=== PATIENT | female | born 1950 | race Caucasian/White ===

== ENCOUNTER 2018-03-11 21:47 | Inpatient (IN) | payer OTHER ==
[~2018-03-11] VITALS: Ht 165.1 cm; Wt 63.5 kg
[2018-03-11 21:50] VITALS: O2SAT 99
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
[2018-03-11 22:13] LABS: AUTOMATED NEUTROPHIL # 6.2 TH/MM3 (1.8-7.7); BASOPHIL # 0.1 TH/MM3 (0-0.2); BASOPHIL % 0.7 % (0.0-2.0); EOSINOPHIL # 0.1 TH/MM3 (0-0.4); EOSINOPHIL % 1.5 % (0.0-4.0); HEMOGLOBIN 10.8 GM/DL (11.6-15.3); LYMPH % 26.8 % (9.0-44.0); LYMPHOCYTE # 2.6 TH/MM3 (1.0-4.8); MEAN CELL VOLUME 74.2 FL (80.0-100.0); MEAN CORPUSCULAR HEMOGLOBIN 24.3 PG (27.0-34.0); MEAN CORPUSCULAR HGB CONC 32.8 % (32.0-36.0); MEAN PLATELET VOLUME 6.9 FL (7.0-11.0); MONO % 7.7 % (0.0-8.0); MONOCYTE # 0.7 TH/MM3 (0-0.9); NEUT % 63.3 % (16.0-70.0); PLATELET COUNT 482 TH/MM3 (150-450); RED BLOOD COUNT 4.45 MIL/MM3 (4.00-5.30); RED CELL DISTRIBUTION WIDTH 18.6 % (11.6-17.2); WHITE BLOOD COUNT 9.7 TH/MM3 (4.0-11.0)
[2018-03-11 22:20] VITALS: BP 158/98; PULSE 96; RESP 18; O2SAT 97
[2018-03-11] MEDS ORDERED: IOHEXOL 350 MG/ML 10 ML VIAL (for RAD DIAG) IVCONTRAST ONE (22:21)
[2018-03-11] MEDS ORDERED: MORPHINE SULFATE 4 MG/ML INJ ONE (22:23)
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
[2018-03-11] MEDS ORDERED: NURSING INFORMATION XX SCH (22:30)
[2018-03-11] MEDS: ACETAMINOPHEN 1000 MG/100 ML 100 ML IV SCH (22:30)
[2018-03-11] MEDS ORDERED: MORPHINE SULFATE 8 MG/ML INJ IV PUSH PRN (22:30)
[2018-03-11] MEDS ORDERED: CHLORHEXIDINE GLUCONATE 2 % 1 PACK (2 CLOTHS) TOP PRN (22:30)
[2018-03-11] MEDS ORDERED: MORPHINE SULFATE 4 MG/ML INJ IV PUSH PRN (22:30)
[2018-03-11] MEDS ORDERED: SODIUM CHLOR 0.9% 1000 ML INJ 1,000 ML IV ONE (22:30)
[2018-03-11] MEDS ORDERED: LORazepam 2 MG/ML VIAL IV PUSH PRN (22:30)
[2018-03-11 22:32] LABS: PROTHROMBIN TIME - PATIENT 9.9 SEC (9.8-11.6)
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
[2018-03-12] VITALS (7 sets, daily range): BP systolic 107–190; BP diastolic 52–80; PULSE 72–103; RESP 13–18; TEMP 97.7–98.1; O2SAT 96–99
[2018-03-12] MEDS: MULTIVITAMIN INJ 10 ML, THIAMINE INJ 100 MG, FOLIC ACID INJ 1 MG in SODIUM CHLORID 0.9%... IV SCH (01:00)
[2018-03-12] MEDS: CHLORHEXIDINE GLUCONATE 2 % 1 PACK (2 CLOTHS) TOP SCH ×2 (04:00→19:50)
[2018-03-12] MEDS: ACETAMINOPHEN 1000 MG/100 ML 100 ML IV SCH ×3 (04:30→13:51)
[2018-03-12] MEDS ORDERED: oxyCODONE/ACETAMINOPHEN 5 MG/325 MG TAB PO PRN (06:45)
[2018-03-12] MEDS ORDERED: WALKER WHEELS/F1 MIS (07:10)
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
[2018-03-12] MEDS ORDERED: DOCUSATE SODIUM 100 MG CAP PO SCH (09:00)
[2018-03-12] MEDS: oxyCODONE/ACETAMINOPHEN 7.5 MG/325 MG TAB PO PRN ×4 (09:29→21:27)
[2018-03-12] MEDS: DOCUSATE SODIUM 50 MG/SENNA 8.6 MG TAB PO SCH ×2 (09:29→19:53)
[2018-03-12 10:54] LABS: AUTOMATED NEUTROPHIL # 3.4 TH/MM3 (1.8-7.7); BASOPHIL # 0.1 TH/MM3 (0-0.2); BASOPHIL % 1.4 % (0.0-2.0); EOSINOPHIL # 0.2 TH/MM3 (0-0.4); EOSINOPHIL % 3.9 % (0.0-4.0); HEMATOCRIT 31.8 % (35.0-46.0); HEMOGLOBIN 10.3 GM/DL (11.6-15.3); LYMPH % 28.3 % (9.0-44.0); LYMPHOCYTE # 1.6 TH/MM3 (1.0-4.8); MEAN CELL VOLUME 75.4 FL (80.0-100.0); MEAN CORPUSCULAR HEMOGLOBIN 24.4 PG (27.0-34.0); MEAN CORPUSCULAR HGB CONC 32.4 % (32.0-36.0); MEAN PLATELET VOLUME 7.1 FL (7.0-11.0); MONO % 8.3 % (0.0-8.0); MONOCYTE # 0.5 TH/MM3 (0-0.9); NEUT % 58.1 % (16.0-70.0); PLATELET COUNT 498 TH/MM3 (150-450); RED BLOOD COUNT 4.22 MIL/MM3 (4.00-5.30); RED CELL DISTRIBUTION WIDTH 18.4 % (11.6-17.2); WHITE BLOOD COUNT 5.8 TH/MM3 (4.0-11.0)
[2018-03-12] MEDS ORDERED: PAXI10TA8 PO (11:02)
[2018-03-12] MEDS ORDERED: NADO20TA PO (11:02)
[2018-03-12] MEDS ORDERED: PANT20 PO (11:02)
[2018-03-12] MEDS ORDERED: LORA-474 PO (11:02)
[2018-03-12] MEDS ORDERED: ABIL10TA8 PO (11:02)
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
[2018-03-12 11:17] LABS: ALBUMIN 3.2 GM/DL (3.4-5.0); AST (GOT) 17 U/L (15-37); BICARBONATE 24.4 MEQ/L (21.0-32.0); BLOOD UREA NITROGEN 14 MG/DL (7-18); CALCIUM 8.8 MG/DL (8.5-10.1); CHLORIDE 101 MEQ/L (98-107); CREATININE 0.65 MG/DL (0.50-1.00); GLOMERULAR FILTRATION RATE 91 ML/MIN (>89); GLUCOSE,RANDOM 96 MG/DL (74-106); SODIUM (NA) 135 MEQ/L (136-145)
[2018-03-12 11:18] LABS: ALT (GPT) 19 U/L (10-53)
[2018-03-12 11:20] LABS: ALKALINE PHOSPHATASE 85 U/L (45-117); TOTAL BILIRUBIN ADULT 0.2 MG/DL (0.2-1.0); TOTAL PROTEIN 6.6 GM/DL (6.4-8.2)
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
[2018-03-12] MEDS ORDERED: BACITRACIN TOP OINT 15 GM TUBE TOPICAL SCH (15:15)
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
[2018-03-12] MEDS ORDERED: GABA100C4 PO (16:43)
[2018-03-12] MEDS: LORazepam 0.5 MG TAB PO PRN (17:13)
[2018-03-12] MEDS: ARIPiprazole 10 MG TAB PO SCH (17:13)
[2018-03-12] MEDS: NADOLOL 20 MG TAB PO SCH (17:13)
[2018-03-12] MEDS: PARoxetine HCL 20 MG TAB PO SCH (17:13)
[2018-03-12] MEDS: PANTOPRAZOLE SOD 20 MG DELAYED RELEASE TAB PO SCH (19:53)
[2018-03-13] VITALS: BP 105/55; PULSE 74; RESP 16; TEMP 98.4; O2SAT 96
[2018-03-13] MEDS: MULTIVITAMIN INJ 10 ML, THIAMINE INJ 100 MG, FOLIC ACID INJ 1 MG in SODIUM CHLORID 0.9%... IV SCH (00:09)
[2018-03-13] MEDS ORDERED: ONDANSETRON ODT 4 MG TAB PO PRN (00:30)
[2018-03-13] MEDS: LORazepam 0.5 MG TAB PO PRN ×2 (03:01→11:42)
[2018-03-13] MEDS: oxyCODONE/ACETAMINOPHEN 7.5 MG/325 MG TAB PO PRN ×3 (03:01→13:19)
[2018-03-13 04:00] VITALS: BP 105/55; PULSE 74; RESP 18; TEMP 98.2; O2SAT 95
[2018-03-13 08:00] VITALS: BP 111/57; PULSE 68; RESP 16; TEMP 98; O2SAT 98
[2018-03-13] MEDS: PARoxetine HCL 20 MG TAB PO SCH (08:23)
[2018-03-13] MEDS: DOCUSATE SODIUM 50 MG/SENNA 8.6 MG TAB PO SCH (08:23)
[2018-03-13] MEDS: ARIPiprazole 10 MG TAB PO SCH (08:23)
[2018-03-13] MEDS: PANTOPRAZOLE SOD 20 MG DELAYED RELEASE TAB PO SCH (08:23)
[2018-03-13] MEDS: NADOLOL 20 MG TAB PO SCH (08:23)
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
[2018-03-13] MEDS ORDERED: ENOXAPARIN SODIUM 40 MG/0.4 ML SYRINGE SQ SCH (10:00)
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
[2018-03-13 12:00] VITALS: BP 122/58; PULSE 72; RESP 18; TEMP 98; O2SAT 96
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
[2018-03-14] MEDS ORDERED: PARoxetine HCL 20 MG TAB PO SCH (09:00)
== END 2018-03-13 16:33 | disposition home or self-care (01) | DRG 536 ==
LOC: NEPI 21:47 → NEDA 22:40 → EDBD 22:40 → NEDH 03-12 04:29 → N06A 03-12 13:37
PROVIDERS: ADMIT Surgery Trauma Surgery; ATTEND Surgery Trauma Surgery
DX: S32.402A Unspecified fracture of left acetabulum, initial encounter for closed fracture (principal); E87.1 Hypo-osmolality and hyponatremia; S06.0X9A Concussion with loss of consciousness of unspecified duration, initial encounter; F31.9 Bipolar disorder, unspecified; S51.812A Laceration without foreign body of left forearm, initial encounter; F41.9 Anxiety disorder, unspecified; R40.2413 Glasgow coma scale score 13-15, at hospital admission; V89.2XXA Person injured in unspecified motor-vehicle accident, traffic, initial encounter
CPT/HCPCS: 70450; 71045; 71260; 72125; 72170; 73090; 74177; 80048; 80053; 80307; 84443; 85025; 85610; 85730; 86850; 86900; 86901; J0131; J1650; J2060; J2270; J3411; J7030; J7040; Q9967

== ENCOUNTER 2018-04-15 04:34 | Observation (INO) ==
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
[2018-04-15 05:38] LABS: Baso % (Auto) 0.2 % (0.0-2.0); Eos # (Auto) 0.1 th/mm3 (0.0-0.4); Eos % (Auto) 0.7 % (0.0-4.0); Hematocrit 31.4 % (35.0-46.0); Hemoglobin 9.6 gm/dL (11.6-15.3); Lymph # (Auto) 1.2 th/mm3 (1.0-4.8); Lymph % (Auto) 9.2 % (9.0-44.0); Mean Corpuscular Hemoglobin 23.2 pg (27.0-34.0); Mean Corpuscular Volume 76.1 fL (80.0-100.0); Mean Platelet Volume 7.2 fL (7.0-11.0); Mono # (Auto) 0.4 th/mm3 (0.0-0.9); Neut # (Auto) 11.7 th/mm3 (1.8-7.7); Neut % (Auto) 86.9 % (16.0-70.0); Platelet Count 632 th/mm3 (150-450); Red Blood Count 4.12 mil/mm3 (4.00-5.30); Red Cell Distribution Width 16.9 % (11.6-17.2); White Blood Count 13.4 th/mm3 (4.0-11.0)
[2018-04-15 05:39] LABS: Mean Corpuscular HGB Conc 30.4 % (32.0-36.0)
[2018-04-15 05:44] LABS: Chloride 102 meq/L (98-107); Potassium 4.4 meq/L (3.5-5.1); Sodium 136 meq/L (136-145)
[2018-04-15 05:48] LABS: Albumin 3.4 g/dL (3.4-5.0); Anion Gap 8 meq/L (5-15); Blood Urea Nitrogen 14 mg/dL (7-18); Calcium 8.7 mg/dL (8.5-10.1); Carbon Dioxide 26.2 meq/L (21.0-32.0); Glucose,Random 115 mg/dL (74-106)
[2018-04-15 05:51] LABS: Alanine Aminotransferase 14 U/L (10-53); Aspartate Aminotransferase 10 U/L (15-37); Glomerular Filtration Rate 55 mL/min (>89)
[2018-04-15 05:54] LABS: Alkaline Phosphatase 80 U/L (45-117); Ovalocytes 1+; Platelet Morphology Normal (Normal)
--- NOTE | 2018-04-15 05:58 | XR ---
EXAM DATE: 04/15/2018 5:50 AM EDT AGE/SEX: 67 years / Female INDICATIONS: Left hip pain post fall. CLINICAL DATA: This is the patient's initial encounter. Patient reports that signs and symptoms have been present for 4 - 6 months and indicates a pain score of 9/10. MEDICAL/SURGICAL HISTORY: None. None. COMPARISON: [facility] [place], PELVIS AP ONLY, 03/11/2018. [facility] [place], CT ABDOMEN & PELVIS W CONTRAST, 03/11/2018. . FINDINGS: Prior CT 03/11/2018 had demonstrated fractures of the superior acetabulum, anterior column, medial juanita tabulum, inferior pubic ramus, and left iliac wing. There was also narrowing of the superior hip join t and linear fracture line through the superior femoral head cortex. On today's examination, these fr actures and deformities appear stable in appearance. The superior femoral head is flattened, similar to prior conventional radiograph, but there is a greater degree of lucency of the superior femoral he ad. No evidence of bony injury in the right hemipelvis. CONCLUSION: Multiple left pelvic fractures have similar configuration to prior conventional radiographs and CT. A n increase in the lucency at the flattened superior femoral head may indicate development of aseptic necrosis. Electronically signed by: Nitesh Pearl MD 04/15/2018 5:57 AM EDT
[2018-04-15 06:07] LABS: Creatine Kinase 54 U/L (26-192)
[2018-04-15 06:36] LABS: Amphetamine Screen,Urine Neg (Neg); Barbiturate Screen,Urine Neg (Neg); Cannabinoid Screen,Urine Neg (Neg); Cocaine Screen,Urine Neg (Neg)
[2018-04-15 06:37] LABS: Opiate Screen,Urine Neg (Neg)
[2018-04-15] MEDS ORDERED: Bisacodyl 10 MG Supp RECTAL PRN (06:49)
[2018-04-15] MEDS: Ibuprofen 600 MG Tablet PO PRN ×2 (10:24→17:52)
--- NOTE | 2018-04-15 11:08 | P.HP ---
History of Present Illness Primary Care Physician: No Primary Care Physician Chief Complaint: confusion History of Present Illness: patient is a 67 y/o female with history of pelvic fractures few months ago, was brought to ER with confusional episode. apparently she was found confused when she parked the car on the wrong driveway. she's complaining of pelvic pain. however she denies any urinary complaints, cough, sob, fever or chills or abdominal or chest pain. she says that she has an appointment with her ortho surgeon tomorrow. - Diagnosis (1) Acute encephalopathy (2) Pelvic fracture (3) UTI (urinary tract infection) (4) DVT prophylaxis - Inpatient Certification If this patient has been admitted as an Inpatient: I certify that the inpatient services were ordered in accordance with Medicare regulations governing the order. 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 - Medical History Medical History: Medical History (Last Reviewed 04/15/18 @ 10:45 by Geremias Barahona) Pain experienced daily - Surgical History Surgical History: Surgical History (Last Reviewed 04/15/18 @ 10:45 by Geremias Barahona) History of tonsillectomy Shoulder joint replacement status - Tobacco History Second Hand Smoke Exposure: No Tobacco Use In Past 30 Days: No Smoking Status: Unknown if ever smoked - Alcohol History How Often Do You Have a Drink Containing Alcohol: Never - Substance Use History Substance History: No History of Abuse - Travel History Recent Travel in the [place] Within the Last 8 Weeks: No Recent Travel Out of the Country Within the Last 8 Weeks: No - Immunization History Tetanus Immunization: Unsure Hx Influenza Vaccine This Season: No Medications and Allergies Active Medications: Active Medications Al Hydroxide/Mg Hydroxide (Milk Of Magnesia Liq) 30 ml PO Q12H PRN PRN Reason: Mild Constipation Bisacodyl (Dulcolax Supp) 10 mg RECTAL DAILY PRN PRN Reason: SEVERE CONSITIPATION Ceftriaxone Sodium 1,000 mg/ (Sodium Chloride) 100 mls @ 200 mls/hr IV.SIG Q24H JENNIFER Lactulose (Lactulose Liq) 30 ml PO DAILY PRN PRN Reason: SEVERE CONSITIPATION Sennosides (Senokot) 17.2 mg PO Q12H PRN PRN Reason: Moderate Constipation Sodium Chloride (Ns Flush) 2 ml IV.FLUSH PRN PRN PRN Reason: FLUSH AFTER USING IV ACCESS Allergies Allergy/AdvReac Type Severity Reaction Status Date / Time No Known Allergies Allergy Verified 04/15/18 04:44 Home Medications Medication Instructions Recorded Confirmed Type aripiprazole [Abilify] DAILY 04/15/18 History oxycodone-acetaminophen 1 tab PO Q4-6H PRN 04/15/18 04/15/18 History paroxetine HCl [Paxil] 10 mg PO DAILY 04/15/18 04/15/18 History Exam Vital signs: Vital Signs 04/15/18 04:43 04/15/18 04:49 04/15/18 05:00 Temperature 99.1 F 99.1 F Pulse Rate 67 67 Respiratory Rate 18 18 Blood Pressure 118/53 L 118/53 L Pulse Oximetry 98 99 99 04/15/18 05:59 04/15/18 06:39 04/15/18 08:00 Temperature Pulse Rate 78 69 Respiratory Rate 18 16 Blood Pressure 132/60 123/62 Pulse Oximetry 99 97 99 04/15/18 09:14 Temperature 97.3 F L Pulse Rate 63 Respiratory Rate 18 Blood Pressure 142/63 H Pulse Oximetry 97 Intake & Output 04/14/18 04/15/18 04/15/18 18:59 06:59 18:59 Intake Total 100 / 100 Balance 100 / 100 Weight 60.328 kg Intake: IV 100 / 100 Rocephin Inj 1,000 MG In NS Inj 100 / 100 100 ML @ 200 mls/hr IV.SIG ONCE ONE Rx#:[id number] - Constitutional no acute distress - Routine HEENT Exam Head: Present: normocephalic, atraumatic Eye: Present: PERRL - Routine Neck Exam Present: supple, full ROM - Routine Respiratory Exam Present: CTA bilaterally - Routine Cardiovascular Exam Present: RRR - Routine Extremities Exam Comments: no pedal edema. - Routine Neurological Exam Present: alert, oriented X3 Results - Labs CBC & Chem 7: 04/15/18 05:25 04/15/18 05:25 Labs: Laboratory Results - last 24 hr 04/15/18 04/15/18 04/15/18 05:25 05:25 05:25 CBC w Diff Slide review pending WBC 13.4 H RBC 4.12 Hgb 9.6 L Hct 31.4 L MCV 76.1 L MCH 23.2 L MCHC 30.4 L RDW 16.9 Plt Count 632 H MPV 7.2 Neut % (Auto) 86.9 H Lymph % (Auto) 9.2 Terry % (Auto) 3.0 Eos % (Auto) 0.7 Baso % (Auto) 0.2 Neut # (Auto) 11.7 H Lymph # (Auto) 1.2 Terry # (Auto) 0.4 Eos # (Auto) 0.1 Baso # (Auto) 0.0 WBC Differential . Diff Scan Auto diff confirmed Platelet Estimate High H Platelet Morphology Normal Ovalocytes 1+ H Sodium 136 Potassium 4.4 Chloride 102 Carbon Dioxide 26.2 Anion Gap 8 BUN 14 Creatinine 1.00 Estimated GFR 55 L Random Glucose 115 H Lactic Acid 1.4 Calcium 8.7 Total Bilirubin 0.3 AST 10 L ALT 14 Alkaline Phosphatase 80 Ammonia Total Creatine Kinase 54 Troponin I Less than 0.02 L Total Protein 7.0 Albumin 3.4 Urine Color Urine Clarity Urine pH Ur Specific [place] Urine Protein Urine Glucose (UA) Urine Ketones Urine Occult Blood Urine Nitrate Urine Bilirubin Urine Urobilinogen Ur Leukocyte Esterase Urine RBC Urine WBC Ur Squamous Epith Cells Urine Bacteria Micro UA Comment Urine Culture Comments Urine Opiates Screen Ur Barbiturates Screen Ur Amphetamines Screen U Benzodiazepines Scrn Urine Cocaine Screen U Cannabinoids Screen Serum Alcohol Less than 3 04/15/18 04/15/18 04/15/18 05:25 06:15 06:15 CBC w Diff WBC RBC Hgb Hct MCV MCH MCHC RDW Plt Count MPV Neut % (Auto) Lymph % (Auto) Terry % (Auto) Eos % (Auto) Baso % (Auto) Neut # (Auto) Lymph # (Auto) Terry # (Auto) Eos # (Auto) Baso # (Auto) WBC Differential Diff Scan Platelet Estimate Platelet Morphology Ovalocytes Sodium Potassium Chloride Carbon Dioxide Anion Gap BUN Creatinine Estimated GFR Random Glucose Lactic Acid Calcium Total Bilirubin AST ALT Alkaline Phosphatase Ammonia Less than 10 L Total Creatine Kinase Troponin I Total Protein Albumin Urine Color Yellow Urine Clarity Slightly cloudy Urine pH 7.0 Ur Specific [place] 1.010 Urine Protein Negative Urine Glucose (UA) Negative Urine Ketones Negative Urine Occult Blood Negative Urine Nitrate Positive H Urine Bilirubin Negative Urine Urobilinogen 0.2 Ur Leukocyte Esterase Negative Urine RBC 0-3 Urine WBC 5-8 H Ur Squamous Epith Cells 0-5 Urine Bacteria Many H Micro UA Comment Cath-culture ind Urine Culture Comments Cath-cult indicated Urine Opiates Screen Neg Ur Barbiturates Screen Neg Ur Amphetamines Screen Neg U Benzodiazepines Scrn Neg Urine Cocaine Screen Neg U Cannabinoids Screen Neg Serum Alcohol - Imaging Impressions Head CT 04/15/18 04:43 CONCLUSION: 1. No acute findings in the brain. 2. Left ethmoid sinus disease. Pelvis X-Ray 04/15/18 05:36 CONCLUSION: Multiple left pelvic fractures have similar configuration to prior conventional radiographs and CT. An increase in the lucency at the flattened superior femoral head may indicate development of aseptic necrosis. Caprini VTE Risk Assessment Caprini VTE Risk Assessment: Moderate/High Risk (score >= 2) Caprini Risk Assessment Model: Point Value = 1 Point Value = 2 Point Value = 3 Point Value = 5 Age 41-60 Minor surgery BMI > 25 kg/m2 Swollen legs Varicose veins or History of unexplained or recurrent spontaneous Oral contraceptives or hormone replacement Sepsis (< 1 month) Serious lung disease, including pneumonia (< 1 month) Abnormal pulmonary function Acute myocardial infarction Congestive heart failure (< 1 month) History of inflammatory bowel disease Medical patient at bed rest Age 61-74 Arthroscopic surgery Major open surgery (> 45 min) Laparoscopic surgery (> 45 min) Malignancy Confined to bed (> 72 hours) Immobilizing plaster cast Central venous access Age >= 75 History of VTE Family history of VTE Factor V Leiden Prothrombin [id number] Lupus anticoagulant Anticardiolipin antibodies Elevated serum homocysteine Heparin-induced thrombocytopenia Other congenital or acquired thrombophilia Stroke (< 1 month) Elective arthroplasty Hip, pelvis, or leg fracture Acute spinal cord injury (< 1 month) Prophylaxis Regimen: Total Risk Factor Score Risk Level Prophylaxis Regimen 0-1 Low Early ambulation 2 Moderate Order ONE of the following: *Sequential Compression Device (SCD) *Heparin 5000 units SQ BID 3-4 Higher Order ONE of the following medications: *Heparin 5000 units SQ TID *Enoxaparin/Lovenox 40 mg SQ daily (WT < 150 kg, CrCl > 30 mL/min) *Enoxaparin/Lovenox 30 mg SQ daily (WT < 150 kg, CrCl > 10-29 mL/min) *Enoxaparin/Lovenox 30 mg SQ BID (WT < 150 kg, CrCl > 30 mL/min) AND/OR *Sequential Compression Device (SCD) 5 or more Highest Order ONE of the following medications: *Heparin 5000 units SQ TID (Preferred with Epidurals) *Enoxaparin/Lovenox 40 mg SQ daily (WT < 150 kg, CrCl > 30 mL/min) *Enoxaparin/Lovenox 30 mg SQ daily (WT < 150 kg, CrCl > 10-29 mL/min) *Enoxaparin/Lovenox 30 mg SQ BID (WT < 150 kg, CrCl > 30 mL/min) AND *Sequential Compression Device (SCD) Assessment and Plan - Assessment (1) Acute encephalopathy Code(s): G93.40 - Encephalopathy, unspecified Status: Acute Plan: improved- now awake, alert and oriented- CT brain negative- will monitor. (2) Pelvic fracture Code(s): S32.9XXA - Fracture of unspecified parts of lumbosacral spine and pelvis, initial encounter for closed fracture Status: Chronic Plan: continue with pain control- cautious use of narcotics- will consult ortho. (3) UTI (urinary tract infection) Code(s): N39.0 - Urinary tract infection, site not specified Status: Acute Plan: continue with antibiotic and follow the culture. (4) DVT prophylaxis Status: Acute Plan: with subq Lovenox. (3) UTI (urinary tract infection) Qualifiers: Urinary tract infection type: site unspecified Hematuria presence: without hematuria Qualified Code(s): N39.0 - Urinary tract infection, site not specified
[2018-04-15] MEDS: Enoxaparin Inj 40 MG/0.4 ML Syringe SQ SCH (11:59)
[2018-04-15] MEDS: Ketorolac Inj 30 MG/ML (IVP) Vial IV.PUSH PRN ×2 (12:01→22:02)
--- NOTE | 2018-04-15 12:44 | P.PNOP ---
Physical Exam Vital signs: Vital Signs 04/15/18 04:43 04/15/18 04:49 04/15/18 05:00 Temperature 99.1 F 99.1 F Pulse Rate 67 67 Respiratory Rate 18 18 Blood Pressure 118/53 L 118/53 L Pulse Oximetry 98 99 99 04/15/18 05:59 04/15/18 06:39 04/15/18 08:00 Temperature Pulse Rate 78 69 Respiratory Rate 18 16 Blood Pressure 132/60 123/62 Pulse Oximetry 99 97 99 04/15/18 09:14 04/15/18 11:17 04/15/18 11:41 Temperature 97.3 F L Pulse Rate 63 Respiratory Rate 18 17 Blood Pressure 142/63 H Pulse Oximetry 97 99 04/15/18 12:00 Temperature 98.5 F Pulse Rate 69 Respiratory Rate 18 Blood Pressure 121/67 Pulse Oximetry 99 Intake & Output 04/14/18 04/15/18 04/15/18 18:59 06:59 18:59 Intake Total 100 / 100 Balance 100 / 100 Weight 60.328 kg Intake: IV 100 / 100 Rocephin Inj 1,000 MG In NS Inj 100 / 100 100 ML @ 200 mls/hr IV.SIG ONCE ONE Rx#:[id number] Other: Date of Last Bowel Movement 04/14/18 - Urinary Catheter Management Straight Cath placed during this visit: yes Reason for continuing: Not indwelling catheter Insertion date: 04/15/18 Insertion time: 06:19 Results - Labs CBC & Chem 7: 04/15/18 05:25 04/15/18 05:25 Laboratory Results - last 24 hr 04/15/18 04/15/18 04/15/18 05:25 05:25 05:25 CBC w Diff Slide review pending WBC 13.4 H RBC 4.12 Hgb 9.6 L Hct 31.4 L MCV 76.1 L MCH 23.2 L MCHC 30.4 L RDW 16.9 Plt Count 632 H MPV 7.2 Neut % (Auto) 86.9 H Lymph % (Auto) 9.2 Yell % (Auto) 3.0 Eos % (Auto) 0.7 Baso % (Auto) 0.2 Neut # (Auto) 11.7 H Lymph # (Auto) 1.2 Yell # (Auto) 0.4 Eos # (Auto) 0.1 Baso # (Auto) 0.0 WBC Differential . Diff Scan Auto diff confirmed Platelet Estimate High H Platelet Morphology Normal Ovalocytes 1+ H Sodium 136 Potassium 4.4 Chloride 102 Carbon Dioxide 26.2 Anion Gap 8 BUN 14 Creatinine 1.00 Estimated GFR 55 L POC Glucose Random Glucose 115 H Lactic Acid 1.4 Calcium 8.7 Total Bilirubin 0.3 AST 10 L ALT 14 Alkaline Phosphatase 80 Ammonia Total Creatine Kinase 54 Troponin I Less than 0.02 L Total Protein 7.0 Albumin 3.4 Urine Color Urine Clarity Urine pH Ur Specific [place] Urine Protein Urine Glucose (UA) Urine Ketones Urine Occult Blood Urine Nitrate Urine Bilirubin Urine Urobilinogen Ur Leukocyte Esterase Urine RBC Urine WBC Ur Squamous Epith Cells Urine Bacteria Micro UA Comment Urine Culture Comments Urine Opiates Screen Ur Barbiturates Screen Ur Amphetamines Screen U Benzodiazepines Scrn Urine Cocaine Screen U Cannabinoids Screen Serum Alcohol Less than 3 04/15/18 04/15/18 04/15/18 05:25 06:15 06:15 CBC w Diff WBC RBC Hgb Hct MCV MCH MCHC RDW Plt Count MPV Neut % (Auto) Lymph % (Auto) Yell % (Auto) Eos % (Auto) Baso % (Auto) Neut # (Auto) Lymph # (Auto) Yell # (Auto) Eos # (Auto) Baso # (Auto) WBC Differential Diff Scan Platelet Estimate Platelet Morphology Ovalocytes Sodium Potassium Chloride Carbon Dioxide Anion Gap BUN Creatinine Estimated GFR POC Glucose Random Glucose Lactic Acid Calcium Total Bilirubin AST ALT Alkaline Phosphatase Ammonia Less than 10 L Total Creatine Kinase Troponin I Total Protein Albumin Urine Color Yellow Urine Clarity Slightly cloudy Urine pH 7.0 Ur Specific [place] 1.010 Urine Protein Negative Urine Glucose (UA) Negative Urine Ketones Negative Urine Occult Blood Negative Urine Nitrate Positive H Urine Bilirubin Negative Urine Urobilinogen 0.2 Ur Leukocyte Esterase Negative Urine RBC 0-3 Urine WBC 5-8 H Ur Squamous Epith Cells 0-5 Urine Bacteria Many H Micro UA Comment Cath-culture ind Urine Culture Comments Cath-cult indicated Urine Opiates Screen Neg Ur Barbiturates Screen Neg Ur Amphetamines Screen Neg U Benzodiazepines Scrn Neg Urine Cocaine Screen Neg U Cannabinoids Screen Neg Serum Alcohol 04/15/18 12:09 CBC w Diff WBC RBC Hgb Hct MCV MCH MCHC RDW Plt Count MPV Neut % (Auto) Lymph % (Auto) Yell % (Auto) Eos % (Auto) Baso % (Auto) Neut # (Auto) Lymph # (Auto) Yell # (Auto) Eos # (Auto) Baso # (Auto) WBC Differential Diff Scan Platelet Estimate Platelet Morphology Ovalocytes Sodium Potassium Chloride Carbon Dioxide Anion Gap BUN Creatinine Estimated GFR POC Glucose 132 H Random Glucose Lactic Acid Calcium Total Bilirubin AST ALT Alkaline Phosphatase Ammonia Total Creatine Kinase Troponin I Total Protein Albumin Urine Color Urine Clarity Urine pH Ur Specific [place] Urine Protein Urine Glucose (UA) Urine Ketones Urine Occult Blood Urine Nitrate Urine Bilirubin Urine Urobilinogen Ur Leukocyte Esterase Urine RBC Urine WBC Ur Squamous Epith Cells Urine Bacteria Micro UA Comment Urine Culture Comments Urine Opiates Screen Ur Barbiturates Screen Ur Amphetamines Screen U Benzodiazepines Scrn Urine Cocaine Screen U Cannabinoids Screen Serum Alcohol - Imaging Impressions Head CT 04/15/18 04:43 CONCLUSION: 1. No acute findings in the brain. 2. Left ethmoid sinus disease. Pelvis X-Ray 04/15/18 05:36 CONCLUSION: Multiple left pelvic fractures have similar configuration to prior conventional radiographs and CT. An increase in the lucency at the flattened superior femoral head may indicate development of aseptic necrosis. Assessment and Plan - Problem List (1) Acetabulum fracture, right Code(s): S32.401A - Unspecified fracture of right acetabulum, initial encounter for closed fracture Status: Acute Qualifiers: Encounter type: sequela Sublocation of acetabulum: posterior column Fracture type: closed Fracture alignment: displaced Qualified Code(s): S32.441S - Displaced fracture of posterior column [ilioischial] of right acetabulum, sequela (2) AVN of femur Code(s): M87.059 - Idiopathic aseptic necrosis of unspecified femur Status: Acute (3) Avascular necrosis of bone of left hip Code(s): M87.052 - Idiopathic aseptic necrosis of left femur Status: Chronic Plan: The patient is know to me with healing acetabular fracture and chronic debilitating left hip AVN. She is scheduled to have a total hip arthroplasty in 1 week as long as she is medically cleared. Discussed with Dr. Nolen. She will follow up in the office with Nurse Practitioner Jaya Robert on either Friday of next Friday.
[2018-04-16 06:25] LABS: Hematocrit 30.8 % (35.0-46.0); Hemoglobin 9.7 gm/dL (11.6-15.3); Mean Corpuscular HGB Conc 31.5 % (32.0-36.0); Mean Corpuscular Hemoglobin 23.9 pg (27.0-34.0); Mean Platelet Volume 8.1 fL (7.0-11.0); Platelet Count 576 th/mm3 (150-450); Red Blood Count 4.05 mil/mm3 (4.00-5.30); White Blood Count 7.6 th/mm3 (4.0-11.0)
[2018-04-16] MEDS: Enoxaparin Inj 40 MG/0.4 ML Syringe SQ SCH (08:00)
[2018-04-16] MEDS: Ibuprofen 600 MG Tablet PO PRN (08:01)
--- NOTE | 2018-04-16 08:50 | P.PN ---
Subjective Interval history: patient looks fairly comfortable. she says that the ' pain is not too bad today' . she denies any other complaints. no fever. Physical Exam Vital signs: Vital Signs 04/15/18 09:14 04/15/18 11:17 04/15/18 11:41 Temperature 97.3 F L Pulse Rate 63 Respiratory Rate 18 17 Blood Pressure 142/63 H Pulse Oximetry 97 99 04/15/18 12:00 04/15/18 16:00 04/15/18 18:59 Temperature 98.5 F 97.1 F L Pulse Rate 69 69 Respiratory Rate 18 18 18 Blood Pressure 121/67 141/80 H Pulse Oximetry 99 99 04/15/18 20:00 04/15/18 20:22 04/16/18 00:00 Temperature 99 F 98 F Pulse Rate 75 65 Respiratory Rate 20 20 Blood Pressure 133/88 104/51 L Pulse Oximetry 98 97 95 Intake & Output 04/15/18 04/16/18 04/16/18 18:59 06:59 18:59 Intake Total 940 / 940 120 / 120 Balance 940 / 940 120 / 120 Weight 60.2 kg Intake: IV 100 / 100 Rocephin Inj 1,000 MG In NS Inj 100 / 100 100 ML @ 200 mls/hr IV.SIG ONCE ONE Rx#:[id number] Oral 840 / 840 120 / 120 Other: # Voids 2 2 Date of Last Bowel Movement 04/14/18 - Constitutional no acute distress - Routine Neck Exam Present: supple, full ROM - Routine Respiratory Exam Present: CTA bilaterally - Routine Cardiovascular Exam Present: RRR - Routine Abdominal Exam Present: soft - Routine Extremities Exam Comments: no pedal edema. - Routine Neurological Exam Present: alert, oriented X3 - Urinary Catheter Management Straight Cath placed during this visit: yes Reason for continuing: Not indwelling catheter Insertion date: 04/15/18 Insertion time: 06:19 Results - Labs CBC & Chem 7: 04/16/18 05:00 04/15/18 05:25 Laboratory Results - last 24 hr 04/15/18 04/16/18 12:09 05:00 WBC 7.6 RBC 4.05 Hgb 9.7 L Hct 30.8 L MCV 76.0 L MCH 23.9 L MCHC 31.5 L RDW 17.0 Plt Count 576 H MPV 8.1 POC Glucose 132 H Assessment and Plan - Assessment (1) Acute encephalopathy Code(s): G93.40 - Encephalopathy, unspecified Status: Acute Plan: suspect due to pain meds and UTI- now has much improved- now awake, alert and oriented- CT brain negative- (2) Pelvic fracture Code(s): S32.9XXA - Fracture of unspecified parts of lumbosacral spine and pelvis, initial encounter for closed fracture Status: Chronic Plan: continue with pain control- cautious use of narcotics- ortho recommendations appreciated; f/u with ortho as outpatient. PT consult appreciated.has cane and walker at home. (3) UTI (urinary tract infection) Code(s): N39.0 - Urinary tract infection, site not specified Status: Acute Plan: continue with antibiotic- UC to be followed up. (4) DVT prophylaxis Status: Acute Plan: with subq Lovenox. - Plan Discharge Planning: dc home today. case management consult to assist with dc planning. (3) UTI (urinary tract infection) Qualifiers: Urinary tract infection type: site unspecified Hematuria presence: without hematuria Qualified Code(s): N39.0 - Urinary tract infection, site not specified
== END 2018-04-16 12:46 | disposition home or self-care (01) ==
LOC: PH3 04:34 → PHED 04:34 → PHEDA 04:34 → PH3 08:50
PROVIDERS: ADMIT Internal Medicine; ATTEND Internal Medicine

== ENCOUNTER 2018-08-28 13:33 | Inpatient (IN) ==
[2018-08-28] MEDS ORDERED: Sod Chloride 0.9% Inj 1,000 ML IV.SIG SCH (13:45)
--- NOTE | 2018-08-28 14:04 | ED ---
HPI General Chief Complaint: Weakness Stated Complaint: level of conciousness Time Seen by Provider: 08/28/18 13:39 Source: EMS Mode of arrival: EMS Limitations: no limitations and altered mental status History of Present Illness HPI narrative: Patient is a 67-year-old female who was brought to the emergency room by EMS for evaluation of altered mental status. As per EMS, her neighbor went to patient's home and performed a well person check, reports that the neighbor found patient in bed and was unresponsive. When EMS arrived on scene, they arrived to the house - they reported that the house was very unsanitary and had stool over the floors as well as smothered across the rooms. Patient was responsive to verbal stimuli. 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 Patient reports that she has been getting out of bed but predominately stays in bed as she is in a lot of pain. Patient reports that pain is worse to her right hip where she has the acetabulum fracture. Patient reports that she has been unable to care for herself due to this chronic right sided hip pain. Related Data Home Medications Medication Instructions Recorded Confirmed aripiprazole 5 mg PO DAILY 08/28/18 08/28/18 cefuroxime axetil 500 mg PO Q12H 08/28/18 08/28/18 dexlansoprazole [Dexilant] 60 mg PO DAILY 08/28/18 08/28/18 levetiracetam 500 mg PO BID 08/28/18 08/28/18 nadolol 40 mg PO HS 08/28/18 08/28/18 paroxetine HCl 20 mg PO DAILY 08/28/18 08/28/18 sodium chloride 1,000 mg PO DIRECTED 08/28/18 08/28/18 Allergies Allergy/AdvReac Type Severity Reaction Status Date / Time No Known Allergies Allergy Verified 04/15/18 04:44 Review of Systems ROS: all other systems reviewed are negative [facility] Medical History Medical History Pain experienced daily (Acute) Surgical History Surgical History History of tonsillectomy (Acute) Shoulder joint replacement status (Acute) Social History Social History Substance History: No History of Abuse Second Hand Smoke Exposure: No Smoking Status: Never smoker How Often Do You Have a Drink Containing Alcohol: Never Recent Travel in [facility] within the Last 8 Weeks: No Recent Out of Country Travel within the Last 8 Weeks: No Exam Narrative Exam Narrative: GENERAL: Moderate distress, she is covered in feces SKIN: Focused skin assessment warm/dry. HEAD: Atraumatic. Normocephalic. EYES: Pupils equal and round. No scleral icterus. No injection or drainage. ENT: No nasal bleeding or discharge. Mucous membranes pink and moist. NECK: Trachea midline. No JVD. CARDIOVASCULAR: Regular rate and rhythm. No murmur appreciated. RESPIRATORY: No accessory muscle use. Clear to auscultation. Breath sounds equal bilaterally. GASTROINTESTINAL: Abdomen soft, non-tender, nondistended. Hepatic and splenic margins not palpable. MUSCULOSKELETAL: No obvious deformities. No clubbing. No cyanosis. No edema. NEUROLOGICAL: Awake and alert. No obvious cranial nerve deficits. Motor grossly within normal limits. Normal speech. PSYCHIATRIC: Appropriate mood and affect; insight and judgment normal. She is awake and alert x 3 Course Initial Documented Vital Signs Pulse Oximetry 100 08/28/18 13:39 Last Documented Vital Signs Temperature 98.3 F 08/28/18 14:18 Pulse Rate 88 08/28/18 15:09 Respiratory Rate 16 08/28/18 15:09 Blood Pressure 156/60 H 08/28/18 15:09 Pulse Oximetry 98 08/28/18 15:09 Procedures EJ/Peripheral Line Neck L: Time Out Performed: No Skin Cleansed in Sterile Fashion: Yes Size (gauge): 20 IV Secured and Dressing Applied: Yes Patient Tolerated Procedure: well Medical Decision Making MDM Narrative Medical decision making narrative: During the course of the patients emergency department visit, the patients history, examination, and differential diagnosis were reviewed with the patient. The patient was placed on a security monitor with oximetry and frequent blood pressure monitoring. The patient had an IV access obtained and blood work sent for analysis. Patient with WBC of 24.8, hemoglobin of 9.9, hematocrit 31.6, platelet count 606 Sodium 136, potassium 4.3, chloride 103, BUN 14, creatinine is pending glucose 111 UA is positive for 6-8 white blood cells, few bacteria lactic 1.5 Bandemia 8 Patient with a white blood cell count of 24.8, heart rate is 101. She does have a bandemia. Patient has been pancultured, and lactic acid has been sent. Patient with unknown source for her sepsis, patient will be given Zosyn as well as a dose of IV vancomycin. Patient does not appear to be encephalopathic, she appears to be in extreme pain to her hip causing her to not be able to perform her ADL's. Patient will be admitted to the hospital for further workup. Patient has a bottle of Keflex with her, she is supposed to complete this antibiotic but has not taken it - she does not know why she is supposed to be taking this antibiotic case reviewed with Dr. Barba who accepts pt to service Medical Screen Exam Complete: Yes Emergency Medical Condition: Yes Differential Diagnosis Differential Diagnosis: UTI, encephalopathy, electrolyte abnormality, ACS, arrhythmia, failure to thrive Medical Records Medical records reviewed: Yes I reviewed the patient's medical records. Lab Data Result diagrams: 08/28/18 14:33 08/28/18 14:33 Lab Results 08/28/18 08/28/18 08/28/18 Range/Units 11:45 14:33 14:33 CBC w Diff Slide review pending WBC 24.8 H (4.0-11.0) th/mm3 RBC 4.42 (4.00-5.30) mil/mm3 Hgb 9.9 L (11.6-15.3) gm/dL Hct 31.6 L (35.0-46.0) % MCV 71.6 L (80.0-100.0) fL MCH 22.5 L (27.0-34.0) pg MCHC 31.4 L (32.0-36.0) % RDW 17.2 (11.6-17.2) % Plt Count 606 H (150-450) th/mm3 MPV 8.1 (7.0-11.0) fL Neut % (Auto) 81.6 H (16.0-70.0) % Lymph % (Auto) 10.9 (9.0-44.0) % [place] % (Auto) 2.9 (0.0-8.0) % Eos % (Auto) 0.1 (0.0-4.0) % Baso % (Auto) 4.5 H (0.0-2.0) % Neut # (Auto) 20.3 H (1.8-7.7) th/mm3 Lymph # (Auto) 2.7 (1.0-4.8) th/mm3 [place] # (Auto) 0.7 (0.0-0.9) th/mm3 Eos # (Auto) 0.0 (0.0-0.4) th/mm3 Baso # (Auto) 1.1 H (0.0-0.2) th/mm3 WBC Differential Manual diff final Seg Neuts % (Manual) 78 H (16-70) % Band Neuts % (Manual) 8 H (0-6) % Lymphocytes % (Manual) 10 (9-44) % Monocytes % (Manual) 4 (0-8) % Abs Neuts (Manual) 21.3 H (1.8-7.7) th/mm3 Differential Comment . Platelet Estimate High H (Normal) Platelet Morphology Normal (Normal) Ovalocytes 1+ H (None) PT 9.5 L (9.8-11.6) sec INR 0.9 Ratio APTT 25.6 (23.4-31.7) sec Sodium (136-145) meq/L Potassium (3.5-5.1) meq/L Chloride (98-107) meq/L Carbon Dioxide (21.0-32.0) meq/L Anion Gap (5-15) meq/L BUN (7-18) mg/dL Creatinine (0.50-1.00) mg/dL Estimated GFR (>89) mL/min Random Glucose (74-106) mg/dL Lactic Acid (0.4-2.0) mmol/L Calcium (8.5-10.1) mg/dL Magnesium (1.5-2.5) mg/dL Total Bilirubin (0.2-1.0) mg/dL AST (15-37) U/L ALT (10-53) U/L Alkaline Phosphatase (45-117) U/L Troponin I (0.02-0.05) ng/mL Total Protein (6.4-8.2) g/dL Albumin (3.4-5.0) g/dL Urine Color Yellow (Yellw/Straw) Urine Clarity Slightly cloudy (Clear) Urine pH 8.5 (5.0-8.5) Ur Specific [place] 1.015 (1.002-1.035) Urine Protein Negative (Neg-Trace) mg/dL Urine Glucose (UA) Negative (Negative) mg/dL Urine Ketones Negative (Negative) mg/dL Urine Occult Blood Negative (Negative) Urine Nitrate Negative (Negative) Urine Bilirubin Negative (Negative) Urine Urobilinogen 0.2 (Less than 2) mg/dL Ur Leukocyte Esterase Negative (Negative) Urine RBC 0-3 (0-3) /hpf Urine WBC 6-8 H (0-5) /hpf Ur Squamous Epith Cells 6-10 H (0-5) /hpf Amorphous Sediment Few H (None) /hpf Urine Bacteria Few H (None) /hpf Urine Yeast Few H (None) /hpf Micro UA Comment Culture not ind Ur Microscopic Review Microscopic reviewed Urine Culture Comments Culture not ind Urine Opiates Screen (Neg) Ur Barbiturates Screen (Neg) Ur Amphetamines Screen (Neg) U Benzodiazepines Scrn (Neg) Urine Cocaine Screen (Neg) U Cannabinoids Screen (Neg) Serum Alcohol (0-5) mg/dL 08/28/18 08/28/18 08/28/18 Range/Units 14:33 14:55 15:03 CBC w Diff WBC (4.0-11.0) th/mm3 RBC (4.00-5.30) mil/mm3 Hgb (11.6-15.3) gm/dL Hct (35.0-46.0) % MCV (80.0-100.0) fL MCH (27.0-34.0) pg MCHC (32.0-36.0) % RDW (11.6-17.2) % Plt Count (150-450) th/mm3 MPV (7.0-11.0) fL Neut % (Auto) (16.0-70.0) % Lymph % (Auto) (9.0-44.0) % [place] % (Auto) (0.0-8.0) % Eos % (Auto) (0.0-4.0) % Baso % (Auto) (0.0-2.0) % Neut # (Auto) (1.8-7.7) th/mm3 Lymph # (Auto) (1.0-4.8) th/mm3 [place] # (Auto) (0.0-0.9) th/mm3 Eos # (Auto) (0.0-0.4) th/mm3 Baso # (Auto) (0.0-0.2) th/mm3 WBC Differential Seg Neuts % (Manual) (16-70) % Band Neuts % (Manual) (0-6) % Lymphocytes % (Manual) (9-44) % Monocytes % (Manual) (0-8) % Abs Neuts (Manual) (1.8-7.7) th/mm3 Differential Comment Platelet Estimate (Normal) Platelet Morphology (Normal) Ovalocytes (None) PT (9.8-11.6) sec INR Ratio APTT (23.4-31.7) sec Sodium 136 (136-145) meq/L Potassium 4.3 (3.5-5.1) meq/L Chloride 103 (98-107) meq/L Carbon Dioxide 24.4 (21.0-32.0) meq/L Anion Gap 9 (5-15) meq/L BUN 14 (7-18) mg/dL Creatinine 0.62 (0.50-1.00) mg/dL Estimated GFR Greater than 89 (>89) mL/min Random Glucose 111 H (74-106) mg/dL Lactic Acid 1.5 (0.4-2.0) mmol/L Calcium 8.3 L (8.5-10.1) mg/dL Magnesium 2.3 (1.5-2.5) mg/dL Total Bilirubin 0.2 (0.2-1.0) mg/dL AST 25 (15-37) U/L ALT 26 (10-53) U/L Alkaline Phosphatase 70 (45-117) U/L Troponin I Less than 0.02 L (0.02-0.05) ng/mL Total Protein 7.8 (6.4-8.2) g/dL Albumin 3.2 L (3.4-5.0) g/dL Urine Color (Yellw/Straw) Urine Clarity (Clear) Urine pH (5.0-8.5) Ur Specific [place] (1.002-1.035) Urine Protein (Neg-Trace) mg/dL Urine Glucose (UA) (Negative) mg/dL Urine Ketones (Negative) mg/dL Urine Occult Blood (Negative) Urine Nitrate (Negative) Urine Bilirubin (Negative) Urine Urobilinogen (Less than 2) mg/dL Ur Leukocyte Esterase (Negative) Urine RBC (0-3) /hpf Urine WBC (0-5) /hpf Ur Squamous Epith Cells (0-5) /hpf Amorphous Sediment (None) /hpf Urine Bacteria (None) /hpf Urine Yeast (None) /hpf Micro UA Comment Ur Microscopic Review Urine Culture Comments Urine Opiates Screen Neg (Neg) Ur Barbiturates Screen Neg (Neg) Ur Amphetamines Screen Neg (Neg) U Benzodiazepines Scrn Neg (Neg) Urine Cocaine Screen Neg (Neg) U Cannabinoids Screen Neg (Neg) Serum Alcohol Less than 3 (0-5) mg/dL Imaging Data Radiologist's impression: Head CT 08/28/18 13:39 CONCLUSION: 1. Negative CT Head non contrast. . ECG Data EKG Prior to Arrival: No Attestation: I personally reviewed and interpreted this ECG as follows: Interpretation: EKG at 1413: NSR at 98bpm, qt/qtc: 333/389, no acute st or t wave changes Discharge Plan Discharge Disposition Patient Disposition: 30 Still Patient Discharge Condition Condition: Fair Discharge Details Diagnosis: Bandemia, SIRS (systemic inflammatory response syndrome) Physicians Team ED Provider: Lali Randall Primary Care Provider: UNKNOWN, Rxs /Orders / Referrals /Forms Prescriptions: No Action levetiracetam 500 mg Tablet 500 mg PO BID RF: 0 sodium chloride 1 gram Tablet 1,000 mg PO DIRECTED RF: 0 paroxetine HCl 20 mg Tablet 20 mg PO DAILY RF: 0 nadolol 40 mg Tablet 40 mg PO HS RF: 0 cefuroxime axetil 500 mg Tablet 500 mg PO Q12H RF: 0 aripiprazole 5 mg Tablet 5 mg PO DAILY RF: 0 dexlansoprazole [Dexilant] 60 mg Capsule,Biphase Delayed Releas 60 mg PO DAILY RF: 0 Status ED Status: With Doctor
[2018-08-28 14:50] LABS: Chloride 103 meq/L (98-107); Potassium 4.3 meq/L (3.5-5.1); Sodium 136 meq/L (136-145)
[2018-08-28 14:51] LABS: Baso # (Auto) 1.1 th/mm3 (0.0-0.2); Baso % (Auto) 4.5 % (0.0-2.0); Eos % (Auto) 0.1 % (0.0-4.0); Hematocrit 31.6 % (35.0-46.0); Hemoglobin 9.9 gm/dL (11.6-15.3); Lymph # (Auto) 2.7 th/mm3 (1.0-4.8); Lymph % (Auto) 10.9 % (9.0-44.0); Mean Corpuscular HGB Conc 31.4 % (32.0-36.0); Mean Corpuscular Hemoglobin 22.5 pg (27.0-34.0); Mean Corpuscular Volume 71.6 fL (80.0-100.0); Mean Platelet Volume 8.1 fL (7.0-11.0); Mono # (Auto) 0.7 th/mm3 (0.0-0.9); Mono % (Auto) 2.9 % (0.0-8.0); Neut # (Auto) 20.3 th/mm3 (1.8-7.7); Neut % (Auto) 81.6 % (16.0-70.0); Platelet Count 606 th/mm3 (150-450); Red Blood Count 4.42 mil/mm3 (4.00-5.30); Red Cell Distribution Width 17.2 % (11.6-17.2); White Blood Count 24.8 th/mm3 (4.0-11.0)
[2018-08-28 14:53] LABS: Activated Partial Thrombo Time 25.6 sec (23.4-31.7); Albumin 3.2 g/dL (3.4-5.0); Anion Gap 9 meq/L (5-15); Blood Urea Nitrogen 14 mg/dL (7-18); Calcium 8.3 mg/dL (8.5-10.1); Carbon Dioxide 24.4 meq/L (21.0-32.0); Glucose,Random 111 mg/dL (74-106); INR 0.9 Ratio; Magnesium 2.3 mg/dL (1.5-2.5); Prothrombin Time 9.5 sec (9.8-11.6)
[2018-08-28 14:56] LABS: Alanine Aminotransferase 26 U/L (10-53); Aspartate Aminotransferase 25 U/L (15-37); Glomerular Filtration Rate Greater Than 89 mL/min (>89)
[2018-08-28 14:58] LABS: Total Protein 7.8 g/dL (6.4-8.2)
[2018-08-28 14:59] LABS: Alkaline Phosphatase 70 U/L (45-117)
[2018-08-28 15:01] LABS: Bilirubin,Urine Negative (Negative); Clarity,Urine Slightly Cloudy (Clear); Color,Urine Yellow (Yellw/Straw); Glucose,Urine (UA) Negative (Negative); Leukocyte Esterase,Urine Negative (Negative); Nitrite,Urine Negative (Negative); PH,Urine 8.5 (5.0-8.5); Specific Gravity,Urine 1.015 (1.002-1.035); Urobilinogen,Urine 0.2 mg/dL (Less than 2)
--- NOTE | 2018-08-28 15:01 | CT ---
EXAM DATE: 08/28/2018 2:58 PM EST AGE/SEX: 67 years / Female INDICATIONS: Altered mental status. CLINICAL DATA: This is the patient's initial encounter. Patient reports that signs and symptoms have been present for 1 day and indicates a pain score of 0/10. MEDICAL/SURGICAL HISTORY: None. Tonsillectomy. RADIATION DOSE: 59.49 CTDI (mGy) COMPARISON: [facility], CT HEAD W/O CONTRAST, 04/15/2018. . TECHNIQUE: CT of the head without contrast. Using automated exposure control and adjustment of the mA and/or kV according to patient size, radiation dose was kept as low as reasonably achievable to ob tain optimal diagnostic quality images. DICOM format image data is available electronically for revi ew and comparison. FINDINGS: Cerebrum: The ventricles are normal for age. No evidence of midline shift, mass lesion, hemorrhage or acute infarction. No extraaxial fluid collections are seen. Posterior Fossa: The cerebellum and brainstem are intact. The 4th ventricle is midline. The cerebe llopontine angle is unremarkable. Extracranial: The visualized portion of the orbits is intact. Skull: The calvaria is intact. No evidence of skull fracture. CONCLUSION: 1. Negative CT Head non contrast. . Electronically signed by: Lloyd Chávez MD 08/28/2018 2:59 PM EST
[2018-08-28 15:07] LABS: Amorphous Sediment,Urine Few /hpf; Bacteria,Urine Few /hpf; RBC,Urine 0-3 /hpf (0-3)
[2018-08-28] MEDS ORDERED: Piperacil/Tazo 4.5 GM Premix 4.5 GM/100 ML BAG IV.SIG STA (15:08)
[2018-08-28] MEDS ORDERED: Vancomycin Inj 1,000 MG in Sodium Chlor 0.9% Inj 250 ML IV.SIG STA (15:08)
[2018-08-28 15:09] LABS: Cannabinoid Screen,Urine Neg (Neg)
[2018-08-28 15:10] LABS: Amphetamine Screen,Urine Neg (Neg); Cocaine Screen,Urine Neg (Neg)
[2018-08-28 15:18] LABS: Barbiturate Screen,Urine Neg (Neg)
[2018-08-28 15:19] LABS: Lymphocytes 10 % (9-44); Monocytes 4 % (0-8); Ovalocytes 1+; Platelet Morphology Normal (Normal)
[2018-08-28 15:29] LABS: Opiate Screen,Urine Neg (Neg)
--- NOTE | 2018-08-28 17:00 | XR ---
EXAM DATE: 08/28/2018 4:53 PM EST AGE/SEX: 67 years / Female INDICATIONS: Shortness of breath CLINICAL DATA: This is the patient's initial encounter. Patient reports that signs and symptoms have been present for 1 day and indicates a pain score of Nonresponsive. MEDICAL/SURGICAL HISTORY: None. None. COMPARISON: [facility] [place], CHEST SINGLE AP, 03/11/2018. . FINDINGS: A single AP view of the chest demonstrates the lungs to be symmetrically aerated without evidence of mass, focal consolidation, or effusion. No appreciable pneumothorax. The cardiomediastinal contours are unremarkable. Contour abnormality of the right lateral seventh rib is again noted. Contour abnorm ality of the left lateral sixth rib is also seen. Right shoulder arthroplasty. CONCLUSION: 1. No acute cardiopulmonary findings. 2. Contour abnormality of the right lateral seventh rib and left lateral sixth rib. Electronically signed by: Nat Chou MD 08/28/2018 4:58 PM EST
--- NOTE | 2018-08-28 17:03 | P.HPIM ---
History of Present Illness Primary Care Physician: UNKNOWN History of Present Illness: This patient is a 67 y/o F who with a history of seizure disorder, who was brought in by EMS after she was found down at home. The patient's neighbors went to check on her and found her covered in feces and urine. The patient suffered a left hip fracture in Jun and was following up with Dr. Wright from [facility] and was scheduled for Left Hip repair in a few days. The patient is currently alert and oriented x 3 and is providing the history. She denies any recent fevers or chills, no diarrhea, no cough, no abd pain. PMH seizure disorder, recent left hip fx fam hx non contributory Inpatient Certification: I certify that the inpatient services were ordered in accordance with Medicare regulations governing the order. This includes certification that hospital inpatient services are reasonable and necessary and in the case of services not specified as inpatient-only under 42 CFR 419.22(n), that they are appropriately provided as inpatient services in accordance to with the 2-midnight benchmark under 43 CFR 412.3(e) Estimated Total Length of Stay (Days): 3 Plans for Post Hospital Care: SNF Review of Systems All other systems reviewed negative except as stated in HPI PMFSH - History History Provided By: Patient - Medical History Medical History: Medical History (Last Reviewed 08/28/18 @ 15:11 by Lali Randall) Pain experienced daily - Surgical History Surgical History: Surgical History (Last Reviewed 08/28/18 @ 15:11 by Lali Randall) History of tonsillectomy Shoulder joint replacement status - Tobacco History Second Hand Smoke Exposure: No Smoking Status: Never smoker - Alcohol History How Often Do You Have a Drink Containing Alcohol: Never - Substance Use History Substance History: No History of Abuse - Travel History Recent Travel in the [place] Within the Last 8 Weeks: No Recent Travel Out of the Country Within the Last 8 Weeks: No - Immunization History Tetanus Immunization: Unsure Medications and Allergies Active Medications: Active Medications Vancomycin HCl 1,000 mg/ (Sodium Chloride) 250 mls @ 250 mls/hr IV.SIG Q24H JENNIFER Piperacillin/Tazobactam/Dextrose (Zosyn 3.375 Gm Premix) 50 mls @ 100 mls/hr IV.SIG Q6H JENNIFER Sodium Chloride (Ns Inj) 1,000 mls @ 100 mls/hr IV.CONT .Q10H JENNIFER Levetiracetam 500 mg/ Sodium (Chloride) 105 mls @ 400 mls/hr IV.SIG Q12H JENNIFER Sodium Chloride (Ns Flush) 2 ml IV.FLUSH PRN PRN PRN Reason: FLUSH AFTER USING IV ACCESS Allergies Allergy/AdvReac Type Severity Reaction Status Date / Time No Known Allergies Allergy Verified 04/15/18 04:44 Home Medications Medication Instructions Recorded Confirmed Type aripiprazole 5 mg PO DAILY 08/28/18 08/28/18 History cefuroxime axetil 500 mg PO Q12H 08/28/18 08/28/18 History dexlansoprazole [Dexilant] 60 mg PO DAILY 08/28/18 08/28/18 History levetiracetam 500 mg PO BID 08/28/18 08/28/18 History nadolol 40 mg PO HS 08/28/18 08/28/18 History paroxetine HCl 20 mg PO DAILY 08/28/18 08/28/18 History sodium chloride 1,000 mg PO DIRECTED 08/28/18 08/28/18 History Exam Vital signs: Vital Signs 08/28/18 13:39 08/28/18 14:18 08/28/18 15:09 Temperature 98.3 F Pulse Rate 101 H 88 Respiratory Rate 16 16 Blood Pressure 148/69 H 156/60 H Pulse Oximetry 100 100 98 08/28/18 15:52 08/28/18 16:20 Temperature Pulse Rate 89 88 Respiratory Rate 16 16 Blood Pressure 132/88 155/77 H Pulse Oximetry 100 98 Intake & Output 08/27/18 08/28/18 08/28/18 18:59 06:59 18:59 Intake Total 100 / 100 Balance 100 / 100 Weight 61.689 kg Intake: IV 100 / 100 Zosyn 4.5 GM Premix 4.5 gm In 100 / 100 100 ml @ 200 mls/hr IV.SIG STAT STA Rx#:[id number] Narrative: Patient laying down in bed. Does not appear to be in any acute distress. HEENT EOMI, PERRLA, Atraumatic. CV S1, S2, RRR Lungs CTA B/L Abd soft, nt, nd, normal bowel sounds Ext no findings of cellulitis, no erythema. I evaluated the patients backside, no ulcerations, no spinal tenderness. Neuro Patient moves all 4 exts, sensation intact b/l. Cerebellar signs intact. No photophobia, no neck pain. Results - Labs CBC & Chem 7: 08/28/18 14:33 08/28/18 14:33 Labs: Short CBC 08/28/18 Range/Units 14:33 WBC 24.8 H (4.0-11.0) th/mm3 Hgb 9.9 L (11.6-15.3) gm/dL Hct 31.6 L (35.0-46.0) % Plt Count 606 H (150-450) th/mm3 BMP 08/28/18 14:33 Sodium 136 Potassium 4.3 Chloride 103 Carbon Dioxide 24.4 BUN 14 Creatinine 0.62 Calcium 8.3 L Cardiac Enzymes 08/28/18 Range/Units 14:33 Troponin I Less than 0.02 L (0.02-0.05) ng/mL Liver Function 08/28/18 Range/Units 14:33 Total Bilirubin 0.2 (0.2-1.0) mg/dL AST 25 (15-37) U/L ALT 26 (10-53) U/L Alkaline Phosphatase 70 (45-117) U/L Albumin 3.2 L (3.4-5.0) g/dL Urine 08/28/18 Range/Units 11:45 Urine Color Yellow (Yellw/Straw) Urine Clarity Slightly cloudy (Clear) Urine pH 8.5 (5.0-8.5) Ur Specific [place] 1.015 (1.002-1.035) Urine Protein Negative (Neg-Trace) mg/dL Urine Glucose (UA) Negative (Negative) mg/dL - Imaging Impressions Head CT 08/28/18 13:39 CONCLUSION: 1. Negative CT Head non contrast. . Caprini VTE Risk Assessment Caprini VTE Risk Assessment: Moderate/High Risk (score >= 2) Caprini Risk Assessment Model: Point Value = 1 Point Value = 2 Point Value = 3 Point Value = 5 Age 41-60 Minor surgery BMI > 25 kg/m2 Swollen legs Varicose veins or History of unexplained or recurrent spontaneous Oral contraceptives or hormone replacement Sepsis (< 1 month) Serious lung disease, including pneumonia (< 1 month) Abnormal pulmonary function Acute myocardial infarction Congestive heart failure (< 1 month) History of inflammatory bowel disease Medical patient at bed rest Age 61-74 Arthroscopic surgery Major open surgery (> 45 min) Laparoscopic surgery (> 45 min) Malignancy Confined to bed (> 72 hours) Immobilizing plaster cast Central venous access Age >= 75 History of VTE Family history of VTE Factor V Leiden Prothrombin [id number] Lupus anticoagulant Anticardiolipin antibodies Elevated serum homocysteine Heparin-induced thrombocytopenia Other congenital or acquired thrombophilia Stroke (< 1 month) Elective arthroplasty Hip, pelvis, or leg fracture Acute spinal cord injury (< 1 month) Prophylaxis Regimen: Total Risk Factor Score Risk Level Prophylaxis Regimen 0-1 Low Early ambulation 2 Moderate Order ONE of the following: *Sequential Compression Device (SCD) *Heparin 5000 units SQ BID 3-4 Higher Order ONE of the following medications: *Heparin 5000 units SQ TID *Enoxaparin/Lovenox 40 mg SQ daily (WT < 150 kg, CrCl > 30 mL/min) *Enoxaparin/Lovenox 30 mg SQ daily (WT < 150 kg, CrCl > 10-29 mL/min) *Enoxaparin/Lovenox 30 mg SQ BID (WT < 150 kg, CrCl > 30 mL/min) AND/OR *Sequential Compression Device (SCD) 5 or more Highest Order ONE of the following medications: *Heparin 5000 units SQ TID (Preferred with Epidurals) *Enoxaparin/Lovenox 40 mg SQ daily (WT < 150 kg, CrCl > 30 mL/min) *Enoxaparin/Lovenox 30 mg SQ daily (WT < 150 kg, CrCl > 10-29 mL/min) *Enoxaparin/Lovenox 30 mg SQ BID (WT < 150 kg, CrCl > 30 mL/min) AND *Sequential Compression Device (SCD) Assessment and Plan - Plan This patient is a 67 y/o F who with a history of seizure disorder, who was brought in by EMS after she was found down at home. The patient's neighbors went to check on her and found her covered in feces and urine. The patient suffered a left hip fracture in Jun and was following up with Dr. Wright from [facility] and was scheduled for Left Hip repair in a few days. The patient is currently alert and oriented x 3 and is providing the history. She denies any recent fevers or chills, no diarrhea, no cough, no abd pain. 1. SIRS concern for sepsis Patient is afebrile. She has a significantly elevated wbc ct of 24 with left shift and bandemia. CXR is pending urinalysis is negative. Patient was cultured and iv antibiotics have been initiated. Continue Vanco and Zosyn Imaging and Blood cultures will be folllowed up. There is currently no clear source of infection. No photophobia, no neck pain, patient is ax0 x 3. No spinal tenderness on palpation of the spine. we will perform a bedside swallow eval prior to initiated po meds or diet. 2. Left hip fx Ortho consulted to evaluate the pt for the recent hip fx. Currently no significant complaints of pain. If need pain meds will be initiated. 3. Seizure disorder Patient is on keppra. Continue iv keppra until she is ok swallowing meds. 4. HTN We will monitor her blood pressure and start meds if needed. Currently systolic blood pressure in the mid 130s. Lovenox for dvt prophylaxis
[2018-08-28] MEDS: Sod Chloride 0.9% Inj 1,000 ML IV.CONT SCH ×3 (17:32→20:50)
[2018-08-28] MEDS: Sod Chloride 0.9% Inj 1,000 ML IV.SIG SCH ×2 (18:14→19:42)
[2018-08-28] MEDS: Piperacil/Tazo 3.375 GM Premix 50 ML IV.SIG SCH ×2 (19:44→21:02)
[2018-08-28] MEDS ORDERED: levETIRAcetam 500 MG Tablet PO SCH (21:00)
[2018-08-28 21:38] LABS: Amphetamine Screen,Urine Neg (Neg); Barbiturate Screen,Urine Neg (Neg)
[2018-08-28 21:48] LABS: Cannabinoid Screen,Urine Neg (Neg)
[2018-08-28 21:49] LABS: Cocaine Screen,Urine Neg (Neg)
[2018-08-28 22:01] LABS: Opiate Screen,Urine Neg (Neg)
[2018-08-29] MEDS: Sod Chloride 0.9% Inj 1,000 ML IV.CONT SCH ×2 (02:52→14:45)
[2018-08-29] MEDS: Piperacil/Tazo 3.375 GM Premix 50 ML IV.SIG SCH ×4 (03:01→20:12)
[2018-08-29 07:14] LABS: Baso # (Auto) 0.1 th/mm3 (0.0-0.2); Baso % (Auto) 0.6 % (0.0-2.0); Eos # (Auto) 0.2 th/mm3 (0.0-0.4); Eos % (Auto) 1.9 % (0.0-4.0); Hematocrit 24.5 % (35.0-46.0); Lymph # (Auto) 1.7 th/mm3 (1.0-4.8); Lymph % (Auto) 13.7 % (9.0-44.0); Mean Corpuscular Hemoglobin 23.1 pg (27.0-34.0); Mean Corpuscular Volume 72.3 fL (80.0-100.0); Mean Platelet Volume 7.6 fL (7.0-11.0); Mono # (Auto) 0.6 th/mm3 (0.0-0.9); Mono % (Auto) 4.6 % (0.0-8.0); Neut # (Auto) 9.6 th/mm3 (1.8-7.7); Neut % (Auto) 79.2 % (16.0-70.0); Red Blood Count 3.39 mil/mm3 (4.00-5.30)
[2018-08-29 07:20] LABS: Chloride 109 meq/L (98-107); Potassium 3.7 meq/L (3.5-5.1); Sodium 140 meq/L (136-145)
[2018-08-29 07:22] LABS: Anion Gap 9 meq/L (5-15); Calcium 7.9 mg/dL (8.5-10.1); Carbon Dioxide 21.6 meq/L (21.0-32.0); Glucose,Random 98 mg/dL (74-106)
[2018-08-29 07:23] LABS: Blood Urea Nitrogen 6 mg/dL (7-18)
[2018-08-29 07:24] LABS: Hemoglobin 7.8 gm/dL (11.6-15.3); Platelet Count 488 th/mm3 (150-450); White Blood Count 12.2 th/mm3 (4.0-11.0)
[2018-08-29 07:26] LABS: Glomerular Filtration Rate Greater Than 89 mL/min (>89)
[2018-08-29 07:39] LABS: Ovalocytes 1+; Platelet Morphology Normal (Normal); Rouleaux Present
[2018-08-29] MEDS: Enoxaparin Inj 40 MG/0.4 ML Syringe SQ SCH (10:01)
--- NOTE | 2018-08-29 10:23 | P.PNIM ---
Subjective Interval history: Patient is much more awake and alert this morning. She is alert and oriented x3 at bedside with her friends. She does not have any complaints today and is requesting to go home. Physical Exam Vital signs: Vital Signs 08/28/18 13:39 08/28/18 14:18 08/28/18 15:09 Temperature 98.3 F Pulse Rate 101 H 88 Respiratory Rate 16 16 Blood Pressure 148/69 H 156/60 H Pulse Oximetry 100 100 98 08/28/18 15:52 08/28/18 16:07 08/28/18 16:20 Temperature Pulse Rate 89 78 88 Respiratory Rate 16 16 Blood Pressure 132/88 155/77 H Pulse Oximetry 100 98 08/28/18 18:40 08/28/18 18:42 08/28/18 20:00 Temperature 98.7 F Pulse Rate 80 102 H 80 Respiratory Rate 20 Blood Pressure 116/78 118/76 Pulse Oximetry 100 100 08/28/18 23:50 08/29/18 04:00 08/29/18 08:00 Temperature 97.7 F 98.1 F 97.5 F L Pulse Rate 79 81 85 Respiratory Rate 18 18 16 Blood Pressure 144/65 H 139/71 135/63 Pulse Oximetry 100 100 97 Intake & Output 08/28/18 08/29/18 08/29/18 18:59 06:59 18:59 Intake Total 1350 / 1350 2310 / 2310 Output Total 300 / 300 1300 / 1300 Balance 1050 / 1050 1010 / 1010 Weight 61.68 kg 68.4 kg Intake: IV 1350 / 1350 2310 / 2310 Zosyn 3.375 GM Premix 50 ML @ 100 / 100 100 mls/hr IV.SIG Q6H JENNIFER Rx#: [id number] Zosyn 4.5 GM Premix 4.5 gm In 100 / 100 100 ml @ 200 mls/hr IV.SIG STAT STA Rx#:[id number] NS Inj 1,000 ML @ 2000 mls/hr 1000 / 1000 2000 / 2000 IV.SIG Q30M JENNIFER Rx#:[id number] Vancomycin Inj 1,000 MG In NS 250 / 250 Inj 250 ML @ 250 mls/hr IV.SIG STAT STA Rx#:[id number] Keppra Inj 500 MG In NS Inj 100 210 / 210 ML @ 400 mls/hr IV.SIG Q12H JENNIFER Rx#:[id number] Oral 0 / 0 Output: Urine 300 / 300 1300 / 1300 Other: # Voids 6 Weight On Admission 61.68 kg Narrative: General patient in no acute distress HEENT extraocular movements are intact, clear oropharyngeal mucosa, no JVD Cardiovascular S1-S2 audible, RRR, no murmurs rubs or gallops Respiratory clear to auscultation bilaterally Abdomen soft, nontender, nondistended, normal bowel sounds Extremities no edema 2+ distal pulses in bilateral upper and lower extremities, mild left hip pain. Patient has had surgery of the right shoulder and has decreased range of motion of the right shoulder. Neuro cranial nerves II through XII intact Results - Labs CBC & Chem 7: 08/29/18 06:15 08/29/18 06:15 Laboratory Results - last 24 hr 08/28/18 08/28/18 08/28/18 11:45 14:33 14:33 CBC w Diff Slide review pending WBC 24.8 H RBC 4.42 Hgb 9.9 L Hct 31.6 L MCV 71.6 L MCH 22.5 L MCHC 31.4 L RDW 17.2 Plt Count 606 H MPV 8.1 Neut % (Auto) 81.6 H Lymph % (Auto) 10.9 Sharkey % (Auto) 2.9 Eos % (Auto) 0.1 Baso % (Auto) 4.5 H Neut # (Auto) 20.3 H Lymph # (Auto) 2.7 Sharkey # (Auto) 0.7 Eos # (Auto) 0.0 Baso # (Auto) 1.1 H WBC Differential Manual diff final Diff Scan Seg Neuts % (Manual) 78 H Band Neuts % (Manual) 8 H Lymphocytes % (Manual) 10 Monocytes % (Manual) 4 Abs Neuts (Manual) 21.3 H Differential Comment . Platelet Estimate High H Platelet Morphology Normal Ovalocytes 1+ H Rouleaux PT 9.5 L INR 0.9 APTT 25.6 Sodium Potassium Chloride Carbon Dioxide Anion Gap BUN Creatinine Estimated GFR POC Glucose Random Glucose Lactic Acid Calcium Magnesium Total Bilirubin AST ALT Alkaline Phosphatase Ammonia Total Creatine Kinase Troponin I Total Protein Albumin Urine Color Yellow Urine Clarity Slightly cloudy Urine pH 8.5 Ur Specific [place] 1.015 Urine Protein Negative Urine Glucose (UA) Negative Urine Ketones Negative Urine Occult Blood Negative Urine Nitrate Negative Urine Bilirubin Negative Urine Urobilinogen 0.2 Ur Leukocyte Esterase Negative Urine RBC 0-3 Urine WBC 6-8 H Ur Squamous Epith Cells 6-10 H Amorphous Sediment Few H Urine Bacteria Few H Urine Yeast Few H Micro UA Comment Culture not ind Ur Microscopic Review Microscopic reviewed Urine Culture Comments Culture not ind Urine Opiates Screen Ur Barbiturates Screen Ur Amphetamines Screen U Benzodiazepines Scrn Urine Cocaine Screen U Cannabinoids Screen Serum Alcohol 08/28/18 08/28/18 08/28/18 14:33 14:55 15:03 CBC w Diff WBC RBC Hgb Hct MCV MCH MCHC RDW Plt Count MPV Neut % (Auto) Lymph % (Auto) Sharkey % (Auto) Eos % (Auto) Baso % (Auto) Neut # (Auto) Lymph # (Auto) Sharkey # (Auto) Eos # (Auto) Baso # (Auto) WBC Differential Diff Scan Seg Neuts % (Manual) Band Neuts % (Manual) Lymphocytes % (Manual) Monocytes % (Manual) Abs Neuts (Manual) Differential Comment Platelet Estimate Platelet Morphology Ovalocytes Rouleaux PT INR APTT Sodium 136 Potassium 4.3 Chloride 103 Carbon Dioxide 24.4 Anion Gap 9 BUN 14 Creatinine 0.62 Estimated GFR Greater than 89 POC Glucose Random Glucose 111 H Lactic Acid 1.5 Calcium 8.3 L Magnesium 2.3 Total Bilirubin 0.2 AST 25 ALT 26 Alkaline Phosphatase 70 Ammonia Total Creatine Kinase Troponin I Less than 0.02 L Total Protein 7.8 Albumin 3.2 L Urine Color Urine Clarity Urine pH Ur Specific [place] Urine Protein Urine Glucose (UA) Urine Ketones Urine Occult Blood Urine Nitrate Urine Bilirubin Urine Urobilinogen Ur Leukocyte Esterase Urine RBC Urine WBC Ur Squamous Epith Cells Amorphous Sediment Urine Bacteria Urine Yeast Micro UA Comment Ur Microscopic Review Urine Culture Comments Urine Opiates Screen Neg Ur Barbiturates Screen Neg Ur Amphetamines Screen Neg U Benzodiazepines Scrn Neg Urine Cocaine Screen Neg U Cannabinoids Screen Neg Serum Alcohol Less than 3 08/28/18 08/28/18 08/29/18 19:06 21:23 00:21 CBC w Diff WBC RBC Hgb Hct MCV MCH MCHC RDW Plt Count MPV Neut % (Auto) Lymph % (Auto) Sharkey % (Auto) Eos % (Auto) Baso % (Auto) Neut # (Auto) Lymph # (Auto) Sharkey # (Auto) Eos # (Auto) Baso # (Auto) WBC Differential Diff Scan Seg Neuts % (Manual) Band Neuts % (Manual) Lymphocytes % (Manual) Monocytes % (Manual) Abs Neuts (Manual) Differential Comment Platelet Estimate Platelet Morphology Ovalocytes Rouleaux PT INR APTT Sodium Potassium Chloride Carbon Dioxide Anion Gap BUN Creatinine Estimated GFR POC Glucose 107 101 Random Glucose Lactic Acid Calcium Magnesium Total Bilirubin AST ALT Alkaline Phosphatase Ammonia Total Creatine Kinase Troponin I Total Protein Albumin Urine Color Urine Clarity Urine pH Ur Specific [place] Urine Protein Urine Glucose (UA) Urine Ketones Urine Occult Blood Urine Nitrate Urine Bilirubin Urine Urobilinogen Ur Leukocyte Esterase Urine RBC Urine WBC Ur Squamous Epith Cells Amorphous Sediment Urine Bacteria Urine Yeast Micro UA Comment Ur Microscopic Review Urine Culture Comments Urine Opiates Screen Neg Ur Barbiturates Screen Neg Ur Amphetamines Screen Neg U Benzodiazepines Scrn Neg Urine Cocaine Screen Neg U Cannabinoids Screen Neg Serum Alcohol 08/29/18 08/29/18 08/29/18 06:15 06:15 06:15 CBC w Diff Slide review pending WBC 12.2 H D RBC 3.39 L Hgb 7.8 L D Hct 24.5 L MCV 72.3 L MCH 23.1 L MCHC 32.0 RDW 17.0 Plt Count 488 H MPV 7.6 Neut % (Auto) 79.2 H Lymph % (Auto) 13.7 Sharkey % (Auto) 4.6 Eos % (Auto) 1.9 Baso % (Auto) 0.6 Neut # (Auto) 9.6 H Lymph # (Auto) 1.7 Sharkey # (Auto) 0.6 Eos # (Auto) 0.2 Baso # (Auto) 0.1 WBC Differential . Diff Scan Auto diff confirmed Seg Neuts % (Manual) Band Neuts % (Manual) Lymphocytes % (Manual) Monocytes % (Manual) Abs Neuts (Manual) Differential Comment . Platelet Estimate High H Platelet Morphology Normal Ovalocytes 1+ H Rouleaux Present H PT INR APTT Sodium Potassium Chloride Carbon Dioxide Anion Gap BUN Creatinine Estimated GFR POC Glucose Random Glucose Lactic Acid Calcium Magnesium Total Bilirubin AST ALT Alkaline Phosphatase Ammonia 30 Total Creatine Kinase 56 Troponin I Total Protein Albumin Urine Color Urine Clarity Urine pH Ur Specific [place] Urine Protein Urine Glucose (UA) Urine Ketones Urine Occult Blood Urine Nitrate Urine Bilirubin Urine Urobilinogen Ur Leukocyte Esterase Urine RBC Urine WBC Ur Squamous Epith Cells Amorphous Sediment Urine Bacteria Urine Yeast Micro UA Comment Ur Microscopic Review Urine Culture Comments Urine Opiates Screen Ur Barbiturates Screen Ur Amphetamines Screen U Benzodiazepines Scrn Urine Cocaine Screen U Cannabinoids Screen Serum Alcohol 08/29/18 08/29/18 06:15 07:56 CBC w Diff WBC RBC Hgb Hct MCV MCH MCHC RDW Plt Count MPV Neut % (Auto) Lymph % (Auto) Sharkey % (Auto) Eos % (Auto) Baso % (Auto) Neut # (Auto) Lymph # (Auto) Sharkey # (Auto) Eos # (Auto) Baso # (Auto) WBC Differential Diff Scan Seg Neuts % (Manual) Band Neuts % (Manual) Lymphocytes % (Manual) Monocytes % (Manual) Abs Neuts (Manual) Differential Comment Platelet Estimate Platelet Morphology Ovalocytes Rouleaux PT INR APTT Sodium 140 Potassium 3.7 Chloride 109 H Carbon Dioxide 21.6 Anion Gap 9 BUN 6 L Creatinine 0.47 L Estimated GFR Greater than 89 POC Glucose 102 Random Glucose 98 Lactic Acid Calcium 7.9 L Magnesium 2.0 Total Bilirubin AST ALT Alkaline Phosphatase Ammonia Total Creatine Kinase Troponin I Total Protein Albumin Urine Color Urine Clarity Urine pH Ur Specific [place] Urine Protein Urine Glucose (UA) Urine Ketones Urine Occult Blood Urine Nitrate Urine Bilirubin Urine Urobilinogen Ur Leukocyte Esterase Urine RBC Urine WBC Ur Squamous Epith Cells Amorphous Sediment Urine Bacteria Urine Yeast Micro UA Comment Ur Microscopic Review Urine Culture Comments Urine Opiates Screen Ur Barbiturates Screen Ur Amphetamines Screen U Benzodiazepines Scrn Urine Cocaine Screen U Cannabinoids Screen Serum Alcohol - Imaging Impressions Chest X-Ray 08/28/18 00:00 CONCLUSION: 1. No acute cardiopulmonary findings. 2. Contour abnormality of the right lateral seventh rib and left lateral sixth rib. Head CT 08/28/18 13:39 CONCLUSION: 1. Negative CT Head non contrast. . Assessment and Plan - Plan This patient is a 67 y/o F who with a history of seizure disorder, who was brought in by EMS after she was found down at home. The patient's neighbors went to check on her and found her covered in feces and urine. The patient suffered a left hip fracture in Jun and was following up with Dr. Wright from [facility] and was scheduled for Left Hip repair in a few days. The patient is currently alert and oriented x 3 and is providing the history. She denies any recent fevers or chills, no diarrhea, no cough, no abd pain. 1. SIRS concern for sepsis Patient has remained afebrile overnight. After the initiation of IV antibiotics the patient is a BBC count has improved and is currently 12. Blood cultures are still pending. Patient is afebrile. She has a significantly elevated wbc ct of 24 with left shift and bandemia. CXR does not show any infiltrates. urinalysis is negative. Continue IV vancomycin and Zosyn for today. Blood cultures will be followed up There is currently no clear source of infection. No photophobia, no neck pain, patient is ax0 x 3. Patient is much more awake today than she was yesterday. She says she wants to go home. No spinal tenderness on palpation of the spine. Patient passed swallow evaluation. Diet will be initiated. 2. Left hip fx Ortho consulted to evaluate the pt for the recent hip fx. Imaging of the left hip was ordered. We will follow-up results of the imaging. We will follow-up with orthopedics regarding planning of her left hip repair. 3. Seizure disorder After discussion with the patient today she is more awake and alert. The patient does not have a diagnosis of seizure disorder apparently the patient had a subdural hematoma after a fall a few weeks ago and was started on Keppra because of the fall. The patient states at home she was not even taking the Keppra. We will continue Keppra p.o. for today. 4. HTN Blood pressure is currently under control. Lovenox for dvt prophylaxis
--- NOTE | 2018-08-29 13:15 | XR ---
EXAM DATE: 08/29/2018 1:09 PM EST AGE/SEX: 67 years / Female INDICATIONS: Follow up fracture. CLINICAL DATA: This is the patient's subsequent encounter. Patient reports that signs and symptoms h ave been present for 2 days and indicates a pain score of 5/10. MEDICAL/SURGICAL HISTORY: None. None. COMPARISON: [facility] [place], CT ABDOMEN & PELVIS W CONTRAST, 03/11/2018. . FINDINGS: The patient has old iliac, acetabular and pubic ramus fractures on the left. There is severe arthriti c change in the left hip with complete superior joint space loss and flattening of the superior artic ular surface of the femoral head which may reflect additional interval collapse associated with osteo necrosis. There is nothing to specifically suggest a new acute bony injury. The contralateral right h ip is grossly intact. Visualized right pelvis is intact. CONCLUSION: Old injuries and severe arthritic changes involving the left pelvis and hip. No definite acute bony i njury Electronically signed by: Yusef Renee MD 08/29/2018 1:14 PM EST
[2018-08-29] MEDS ORDERED: Acetaminophen 325 MG Tablet PO PRN (13:31)
--- NOTE | 2018-08-29 14:27 | ECG ---
Date Performed: 08/28/2018 Time Performed: 14:13:17 PTAGE: 67 years EKG: Sinus rhythm NORMAL ECG NO PREVIOUS TRACING DOCTOR: Jaun Bhakta Interpretating Date/Time 08/29/2018 14:26:45
[2018-08-29] MEDS: Vancomycin Inj 1,000 MG in Sodium Chlor 0.9% Inj 250 ML IV.SIG SCH (14:44)
[2018-08-29] MEDS: levETIRAcetam 500 MG Tablet PO SCH (20:12)
[2018-08-30] MEDS: Sod Chloride 0.9% Inj 1,000 ML IV.CONT SCH ×2 (00:02→10:27)
[2018-08-30] MEDS: Piperacil/Tazo 3.375 GM Premix 50 ML IV.SIG SCH ×2 (04:55→10:25)
[2018-08-30] MEDS: levETIRAcetam 500 MG Tablet PO SCH (08:21)
[2018-08-30] MEDS: Enoxaparin Inj 40 MG/0.4 ML Syringe SQ SCH (08:21)
[2018-08-30 08:57] LABS: Baso % (Auto) 0.9 % (0.0-2.0); Eos # (Auto) 0.2 th/mm3 (0.0-0.4); Eos % (Auto) 4.4 % (0.0-4.0); Hematocrit 25.6 % (35.0-46.0); Hemoglobin 8.1 gm/dL (11.6-15.3); Lymph # (Auto) 1.5 th/mm3 (1.0-4.8); Lymph % (Auto) 27.9 % (9.0-44.0); Mean Corpuscular HGB Conc 31.5 % (32.0-36.0); Mean Corpuscular Hemoglobin 22.8 pg (27.0-34.0); Mean Corpuscular Volume 72.3 fL (80.0-100.0); Mean Platelet Volume 7.6 fL (7.0-11.0); Mono # (Auto) 0.3 th/mm3 (0.0-0.9); Mono % (Auto) 6.3 % (0.0-8.0); Neut # (Auto) 3.2 th/mm3 (1.8-7.7); Neut % (Auto) 60.5 % (16.0-70.0); Platelet Count 461 th/mm3 (150-450); Red Blood Count 3.55 mil/mm3 (4.00-5.30); Red Cell Distribution Width 16.8 % (11.6-17.2); White Blood Count 5.2 th/mm3 (4.0-11.0)
[2018-08-30 09:41] LABS: Ovalocytes 1+; Platelet Morphology Normal (Normal); Rouleaux Present
[2018-08-30 09:42] VITALS: RESP 20
--- NOTE | 2018-08-30 12:10 | P.CONPSY ---
Provisional Diagnosis Admission Date: August 28, 2018 15:52 Wallace I.: Major depressive disorder, recurrent History of Present Illness Service: Psychiatry Consult date: 08/30/18 Requesting Physician: Amador Barba Reason for Consult: depression Primary Care Provider: UNKNOWN Chief Complaint: depression History of Present Illness: Pt is a 67 YOWF who was admitted to hospitalist service for AMS after she was found down and confused, covered in urine and feces. Pt was initially thought to be septic. Today, pt is alert and oriented X 4. She states that she thinks she may have had a panic attack and perhaps that led to her "falling out", but is unsure. She reports that she had not been feeling well prior to incident and was experiencing shortness of breath. She adamantly denies any overdose on psychiatric medications. She reports that she was prescribed keppra for seizures secondary to a subdural hematoma that occurred after she tripped in the shower. This same accident also resulted in a hip fracture and pt is scheduled for orthopedic surgery in September for a total hip replacement. Pt reports that she has been under a lot of stress due to multiple medical problems. She reports that she has a long hx of trauma due to of sons and . She reports that she has been treated for major depressive disorder for many years with a variety of medication. She states that she was previously on zoloft and abilify 10mg po daily, but when she moved from [place], she saw a psychiatrist in [place], [place] who stopped zoloft and prescribed paxil. She experienced hyponatremia and paxil was stopped. She reports that psychiatrist would not put her on another antidepressant and kept her on Abilify 5mg po Qdaily and prescribed lorazepam. Pt states that lorazepam made her feel "drunk" and when she complained she did not feel heard. She reports that she is in recovery from alcohol and she cannot take any type of benzodiazepine because they make her feel like she is drinking again. She states that she will not go back to that psychiatrist and describes him as a quack, but would like to continue psychiatric care. She reports that she does have a therapist, but has not seen them in several months due to lack of ability to drive at this time.( uses Uber or rides from friends and family). Pt states that she feels that she became more depressed when Abilify was lowered but would like to stop taking medicines altogether because, "I don't know. I think there might be something that would work better." Past Psychiatric hx: no hx of caitlin or psychosis. No hx of psychiatric hospitalizations. No hx of suicide attempts. Past psychiatric medications: paxil-hypnatremia, zoloft, prozac, cymbalta Review of Systems Psychiatric: Reports anxiety PMFSH - History History Provided By: Patient - Medical History Medical History: Medical History (Last Reviewed 08/30/18 @ 12:01 by Laila Burk MD) Pain experienced daily - Surgical History Surgical History: Surgical History (Last Reviewed 08/30/18 @ 12:01 by Laila Burk MD) History of tonsillectomy Shoulder joint replacement status - Tobacco History Second Hand Smoke Exposure: No Smoking Status: Never smoker - Alcohol History How Often Do You Have a Drink Containing Alcohol: Never - Substance Use History Substance History: Past History (reports has been in recovery for many years from alcohol abuse) - Travel History Recent Travel in the [place] Within the Last 8 Weeks: No Recent Travel Out of the Country Within the Last 8 Weeks: No - Immunization History Tetanus Immunization: Unsure Hx Influenza Vaccine This Season: No Medications and Allergies Active Medications: Active Medications Enoxaparin Sodium (Lovenox Inj) 40 mg SQ DAILY [facility] Last Admin: 08/30/18 08:21 Dose: 40 mg Vancomycin HCl 1,000 mg/ (Sodium Chloride) 250 mls @ 250 mls/hr IV.SIG Q24H JENNIFER Last Infusion: 08/29/18 17:06 Dose: Infused Piperacillin/Tazobactam/Dextrose (Zosyn 3.375 Gm Premix) 50 mls @ 100 mls/hr IV.SIG Q6H JENNIFER Last Infusion: 08/30/18 11:00 Dose: Infused Sodium Chloride (Ns Inj) 1,000 mls @ 100 mls/hr IV.CONT .Q10H JENNIFER Last Admin: 08/30/18 10:27 Dose: 100 mls/hr Levetiracetam (Keppra) 500 mg PO BID JENNIFER Last Admin: 08/30/18 08:21 Dose: 500 mg Ondansetron HCl (Zofran Inj) 4 mg IV.PUSH Q6H PRN PRN Reason: NAUSEA OR VOMITING Last Admin: 08/29/18 20:15 Dose: 4 mg Sodium Chloride (Ns Flush) 2 ml IV.FLUSH PRN PRN PRN Reason: FLUSH AFTER USING IV ACCESS Sodium Chloride (Ns Flush) 2 ml IV.FLUSH BID JENNIFER Last Admin: 08/30/18 08:22 Dose: 2 ml Tramadol HCl (Ultram) 50 mg PO Q8H PRN PRN Reason: PAIN SCALE 1 TO 10 Last Admin: 08/30/18 08:21 Dose: 50 mg Allergies Allergy/AdvReac Type Severity Reaction Status Date / Time No Known Allergies Allergy Verified 04/15/18 04:44 Home Medications Medication Instructions Recorded Confirmed Type aripiprazole 5 mg PO DAILY 08/28/18 08/28/18 History cefuroxime axetil 500 mg PO Q12H 08/28/18 08/28/18 History dexlansoprazole [Dexilant] 60 mg PO DAILY 08/28/18 08/28/18 History levetiracetam 500 mg PO BID 08/28/18 08/28/18 History nadolol 40 mg PO HS 08/28/18 08/28/18 History paroxetine HCl 20 mg PO DAILY 08/28/18 08/28/18 History sodium chloride 1,000 mg PO DIRECTED 08/28/18 08/28/18 History Exam Vital signs: Vital Signs 08/29/18 12:00 08/29/18 16:00 08/29/18 20:00 Temperature 98.0 F 98.1 F 99.9 F H Pulse Rate 97 H 82 81 Respiratory Rate 17 14 18 Blood Pressure 140/69 139/62 135/61 Pulse Oximetry 98 97 98 08/30/18 00:00 08/30/18 04:00 08/30/18 08:00 Temperature 97.3 F L 97.1 F L 97.4 F L Pulse Rate 81 82 78 Respiratory Rate 18 18 20 Blood Pressure 133/67 142/63 H 149/67 H Pulse Oximetry 97 90 L 96 Intake & Output 08/29/18 08/30/18 08/30/18 18:59 06:59 18:59 Intake Total 1400 / 1400 550 / 550 1050 / 1050 Output Total 325 / 325 Balance 1075 / 1075 550 / 550 1050 / 1050 Weight 68.7 kg Intake: IV 900 / 900 550 / 550 1050 / 1050 NS Inj 1,000 ML @ 100 mls/hr IV 550 / 550 450 / 450 1000 / 1000 .CONT .Q10H JENNIFER Rx#:[id number] Zosyn 3.375 GM Premix 50 ML @ 100 / 100 100 / 100 50 / 50 100 mls/hr IV.SIG Q6H JENNIFER Rx#: [id number] Vancomycin Inj 1,000 MG In NS 250 / 250 Inj 250 ML @ 250 mls/hr IV.SIG Q24H JENNIFER Rx#:[id number] Oral 500 / 500 Output: Urine 325 / 325 Other: # Voids 1 6 Date of Last Bowel Movement 08/29/18 08/29/18 # Bowel Movements 1 Mental Status Examination Appearance: Appropriate Consciousness: Alert Orientation: x4 Motor Activity: Other (lying in hospital bed) Speech: Unremarkable Language: Adequate Fund of Knowledge: Adequate Attention and Concentration: Adequate Memory: Unremarkable, Immediate (intact), Recent (intact), Remote (intact) Mood: Appropriate Affect: Anxious (mild) Thought Process & Associations: Intact Thought Content: Appropriate Hallucination Type: None Delusion Type: None Suicidal Ideation: No Suicidal Plan: No Suicidal Intention: No Homicidal Ideation: No Homicidal Plan: No Homicidal Intention: No Insight: Adequate Judgment: Adequate Assessment and Plan - Assessment (1) Major depressive disorder Code(s): F32.9 - Major depressive disorder, single episode, unspecified Status : Acute (2) Bandemia Code(s): D72.825 - Bandemia Status: Acute - Plan Plan: Estimated LOS: [] days As per pt's report, depressive symptoms have worsened when off Abilify, recommendation is that she should continue medication until she can meet with new outpatient psychiatrist to discuss alternative treatment plans. Psychoeducation about diagnosis and plan discussed with staff. Also, provided pt with suggestions for psychiatrists in [facility], . Justification for Continued Inpatient Stay: complicating medical conditions (1) Major depressive disorder Qualifiers: Major depression recurrence: recurrent
--- NOTE | 2018-08-30 14:38 | P.DCO ---
- Physical Therapy Order: Evaluate and treat - Occupational Therapy Order: Evaluate and treat - Home Health Nursing Order: Medical education, Medication education-adverse effect, Nursing assessment with vital signs - Case Management Consult Case Management Consult-Home Health: Yes - Certification I have seen patient Alexia Aguirre on 08/30/18. My clinical findings support the need for the requested home health care services because: Medication compliance is questionable, Limited ability to care for self I certify that my clinical findings support that this patient is homebound because: Unsafe to leave home unassisted
[2018-08-30 14:44] VITALS: BP 168/77; PULSE 86; TEMP 98; O2SAT 97
--- NOTE | 2018-08-30 15:11 | P.DS ---
Date of admission: 08/28/18 15:52 Primary care physician: UNKNOWN Brief History from admission: This patient is a 67 y/o F who with a history of seizure disorder, who was brought in by EMS after she was found down at home. The patient's neighbors went to check on her and found her covered in feces and urine. The neighbors say 12 hrs before she was found she was in a normal state. The patient suffered a left hip fracture in Jun and was following up with Dr. Wright from ortho and was scheduled for Left Hip repair next month. The patient is currently alert and oriented x 3 and is providing the history. She denies any recent fevers or chills, no diarrhea, no cough, no abd pain. PMH subdural hematoma on keppra, recent left hip fx, depression fam hx non contributory DS: Summary Hospital Course: This patient is a 67 y/o F who with a history of seizure disorder, who was brought in by EMS after she was found down at home. The patient's neighbors went to check on her and found her covered in feces and urine. The patient suffered a left hip fracture in Jun and was following up with Dr. Wright from ortho and was scheduled for Left Hip repair in a few days. The patient is currently alert and oriented x 3 and is providing the history. She denies any recent fevers or chills, no diarrhea, no cough, no abd pain. 1. SIRS sepsis unlikely 2. Acute encephalopathy resolved The patient presented with the symptoms mentioned above. Apparently initially the patient was altered and brought into the ER. On my examination the patient was alert and oriented x3 however did appear to be drowsy. There were no fevers. The patient did have an elevated WBC count which down trended and normalized after the initiation of IV fluids and treatment. The following morning the patient was wide awake and answering questions and following my commands appropriately. Chest x-ray did not show any infiltrates, urinalysis was negative. The patient denied having any photophobia no neck pain, no spinal tenderness. I do not believe the patient had an infectious etiology when she was admitted. Urine toxicology was negative. As per the patient's neighbors who found her down in her very close to the patient she has been struggling with pain meds and has overdosed a few times in the past. I thought the patient may have overdosed on 1 of her medications however this is unclear. I had psychiatry evaluate the patient. Recommendations from psychiatry are to continue the patient on Abilify as her symptoms of depression have worsened when being off the medication in the past. Patient does not have any suicidal ideations or thoughts of harming anybody else or herself. She is now stable and will be discharged home with home health. She was also given suggestions for psychiatrists in the [place] area as well as [facility] The patient was advised to return to the hospital if she begins to experience any fevers or chills. There is no infectious etiology for the patient's symptoms and antibiotics have been discontinued. 2. Left hip fx The patient has had a left hip fracture for approximately 1 month. She has a scheduled appointment in September with Dr. Cristobal for the left hip fracture. I discussed the case with Dr. Noel from orthopedics who works with Dr. Cristobal. His recommendations were to have the patient follow-up outpatient with orthopedics for further management and care regarding her left hip fracture. There are no signs of infection around the left hip. Patient is able to ambulate with a limp. At home she has a cane which she was advised to continue to use when ambulate. 3. History of subdural hematoma No seizure like activity. Patient can continue keppra bid. 4. HTN Patient will be started on norvasc for blood pressure control. Blood pressure meds can be adjusted outpt with pcp. - Time Spent with Patient Total time spent providing and/or coordinating discharge services: Greater than 30 minutes - Quality: VTE Deep Vein Thrombosis/Pulmonary Embolism Present on Admission: No Exam Vital signs: Vital Signs 08/29/18 16:00 08/29/18 20:00 08/30/18 00:00 Temperature 98.1 F 99.9 F H 97.3 F L Pulse Rate 82 81 81 Respiratory Rate 14 18 18 Blood Pressure 139/62 135/61 133/67 Pulse Oximetry 97 98 97 08/30/18 04:00 08/30/18 08:00 Temperature 97.1 F L 97.4 F L Pulse Rate 82 78 Respiratory Rate 18 20 Blood Pressure 142/63 H 149/67 H Pulse Oximetry 90 L 96 Intake & Output 08/29/18 08/30/18 08/30/18 18:59 06:59 18:59 Intake Total 1400 / 1400 550 / 550 1050 / 1050 Output Total 325 / 325 Balance 1075 / 1075 550 / 550 1050 / 1050 Weight 68.7 kg Intake: IV 900 / 900 550 / 550 1050 / 1050 NS Inj 1,000 ML @ 100 mls/hr IV 550 / 550 450 / 450 1000 / 1000 .CONT .Q10H JENNIFER Rx#:[id number] Zosyn 3.375 GM Premix 50 ML @ 100 / 100 100 / 100 50 / 50 100 mls/hr IV.SIG Q6H JENNIFER Rx#: [id number] Vancomycin Inj 1,000 MG In NS 250 / 250 Inj 250 ML @ 250 mls/hr IV.SIG Q24H JENNIFER Rx#:[id number] Oral 500 / 500 Output: Urine 325 / 325 Other: # Voids 1 6 Date of Last Bowel Movement 08/29/18 08/29/18 # Bowel Movements 1 Narrative: General patient in no acute distress HEENT extraocular movements are intact, clear oropharyngeal mucosa, no JVD Cardiovascular S1-S2 audible, RRR, no murmurs rubs or gallops Respiratory clear to auscultation bilaterally Abdomen soft, nontender, nondistended, normal bowel sounds Extremities no edema 2+ distal pulses in bilateral upper and lower extremities, mild left hip pain. Patient has had surgery of the right shoulder and has decreased range of motion of the right shoulder. Neuro cranial nerves II through XII intact Results Procedures completed during hospitalization: None Labs on day of discharge: Labs from last 24 hours 08/30/18 08:40 CBC w Diff Slide review pending WBC 5.2 RBC 3.55 L Hgb 8.1 L Hct 25.6 L MCV 72.3 L MCH 22.8 L MCHC 31.5 L RDW 16.8 Plt Count 461 H MPV 7.6 Neut % (Auto) 60.5 Lymph % (Auto) 27.9 Dale % (Auto) 6.3 Eos % (Auto) 4.4 H Baso % (Auto) 0.9 Neut # (Auto) 3.2 Lymph # (Auto) 1.5 Dale # (Auto) 0.3 Eos # (Auto) 0.2 Baso # (Auto) 0.0 WBC Differential . Diff Scan Auto diff confirmed Differential Comment . Platelet Estimate High H Platelet Morphology Normal Ovalocytes 1+ H Rouleaux Present H Preliminary micro results at discharge 08/28/18 14:55 Aerobic Blood Culture - Preliminary Blood - Peripheral No growth in 2 days Anaerobic Blood Culture - Preliminary No growth in 2 days 08/28/18 15:03 Aerobic Blood Culture - Preliminary Blood - Peripheral No growth in 2 days Anaerobic Blood Culture - Preliminary No growth in 2 days - Impressions ITS Impressions Chest X-Ray 08/28/18 00:00 CONCLUSION: 1. No acute cardiopulmonary findings. 2. Contour abnormality of the right lateral seventh rib and left lateral sixth rib. Head CT 08/28/18 13:39 CONCLUSION: 1. Negative CT Head non contrast. . 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 No definite acute bony injury Discharge Plan - Discharge Disposition Patient Disposition: /Home Health Service - Discharge Condition Condition: Good - Discharge Order Discharge Orders: Discharge Order (Routine); Ordered 08/30/18 Ordered By: Amador Barba - Physicians Team Primary Care Provider: UNKNOWN, Attending Provider: Amador Barba Other Providers: Brent Noel MD ; Laila Burk MD
[2018-08-30] MEDS: Vancomycin Inj 1,000 MG in Sodium Chlor 0.9% Inj 250 ML IV.SIG SCH (15:47)
[2018-08-30] MEDS ORDERED: ARIPiprazole 5 MG Tablet PO SCH (21:00)
== END 2018-08-30 16:14 | disposition home health service (06) ==
LOC: PHED 13:33 → PHEDA 15:52 → PH3 16:59
PROVIDERS: ADMIT Hospitalist; ATTEND Hospitalist